=== PATIENT | male | born 1960 | race Caucasian/White ===

== ENCOUNTER 2021-12-20 15:15 | Outpatient (REF) | payer BC, SELFPAY ==
[2021-12-20 18:03] LABS: MANUAL DIFF FLAG NO
[2021-12-20 18:06] LABS: Appearance Urine Clear; Color Urine Dark Yellow; Glucose Urine UA Negative (Negative); Leukocyte Esterase Urine Trace (Negative); Nitrite Urine Negative (Negative); Specific Gravity - Urine >= 1.030 (1.005-1.025); UMIC TRIGGER UACC YES; Urine Blood Negative (Negative); Urine Ketones 40 mg/dL (Negative); Urine Protein 100 (2+) mg/dL (Neg-Trace)
[2021-12-20 18:16] LABS: Alanine Aminotransferase 35 U/L (0-40); Albumin Level 3.7 g/dL (3.5-5.0); Alkaline Phosphatase 75 U/L (39-117); Anion Gap 16 (12-20); Aspartate Amino Transferase 28 U/L (5-37); Bacteria Urine None Seen (None Seen); Bilirubin Total 1.3 mg/dL (0.0-1.0); Blood Urea Nitrogen 15 mg/dL (9-16); C Reactive Protein 23.25 mg/dL (< or = 0.50); Calcium 8.4 mg/dL (8.4-10.2); Carbon Dioxide 27 mmol/L (22-29); Chloride 94 mmol/L (96-108); Estimated Glomerular Filt Rate > 60; Glucose Random 116 mg/dL (60-115); Granular Casts Urine Present; Potassium 4.1 mmol/L (3.3-5.1); Sodium 133 mmol/L (135-145); Total Protein 6.3 g/dL (6.5-8.0); WBC Urine 0-5 /HPF (0-5)
[2021-12-20 18:26] LABS: Basophils Percent Auto 0.3 % (0-2); Eosinophils Absolute Auto 0.1 X10*3/uL (0.0-0.4); Eosinophils Percent Auto 0.6 % (0-4); Hematocrit 35.9 % (42.0-52.0); Hemoglobin 12.1 g/dl (14.0-18.0); Imm Gran Abs Auto 0.15 X10*3/uL (0.00-0.03); Imm Gran Pct Auto 1.1 % (0.0-0.4); Lymphocytes Absolute Auto 0.8 X10*3/uL (1.2-4.9); Lymphocytes Percent Auto 5.7 % (20-40); Mean Corpuscular HGB Conc 33.7 g/dl (31.0-36.0); Mean Corpuscular Hemoglobin 28.2 pg (27.0-33.0); Mean Corpuscular Volume 83.7 fL (80.0-98.0); Mean Platelet Volume 9.4 fL (9.4-12.4); Monocytes Absolute Auto 0.8 X10*3/uL (0.1-1.2); Monocytes Percent Auto 6.1 % (2-11); Neutrophils Absolute Auto 11.3 x10*3/uL (2.0-8.3); Neutrophils Percent Auto 86.2 % (45-73); Platelet Count 260 X10*3/uL (160-400); Red Blood Count 4.29 X10*6/uL (4.60-5.80); Red Cell Distribution Width 13.5 % (11.0-16.0); White Blood Count 13.1 X10*3/uL (4.8-10.8)
[2021-12-20 19:06] LABS: Erythrocyte Sedimentation Rate 89 MM/HR (0-15)
== END 2021-12-20 15:16 | disposition home or self-care (01) ==
LOC: HO.MANLDS 15:15
PROVIDERS: Visit Provider Physician Assistant
DX: R53.83 Other fatigue (principal)
CPT/HCPCS: 36415; 80053; 81001; 85025; 85652; 86140; 87086

== ENCOUNTER 2023-02-27 07:59 | Outpatient (REF) | payer BC, SELFPAY ==
[2023-02-27 13:48] LABS: MANUAL DIFF FLAG NO
[2023-02-27 13:59] LABS: Basophils Percent Auto 0.4 % (0-2); Eosinophils Absolute Auto 0.1 X10*3/uL (0.0-0.4); Eosinophils Percent Auto 2.1 % (0-4); Hematocrit 44.1 % (42.0-52.0); Hemoglobin 14.3 g/dl (14.0-18.0); Imm Gran Abs Auto 0.02 X10*3/uL (0.00-0.03); Imm Gran Pct Auto 0.4 % (0.0-0.4); Lymphocytes Absolute Auto 1.2 X10*3/uL (1.2-4.9); Lymphocytes Percent Auto 23.3 % (20-40); Mean Corpuscular HGB Conc 32.4 g/dl (31.0-36.0); Mean Corpuscular Hemoglobin 27.3 pg (27.0-33.0); Mean Corpuscular Volume 84.3 fL (80.0-98.0); Mean Platelet Volume 9.5 fL (9.4-12.4); Monocytes Absolute Auto 0.4 X10*3/uL (0.1-1.2); Monocytes Percent Auto 6.8 % (2-11); Neutrophils Absolute Auto 3.4 x10*3/uL (2.0-8.3); Platelet Count 244 X10*3/uL (160-400); Red Blood Count 5.23 X10*6/uL (4.60-5.80); White Blood Count 5.1 X10*3/uL (4.8-10.8)
[2023-02-27 14:35] LABS: Alanine Aminotransferase 47 U/L (0-40); Albumin Level 3.9 g/dL (3.5-5.0); Alkaline Phosphatase 72 U/L (39-117); Anion Gap 15 (12-20); Aspartate Amino Transferase 32 U/L (5-37); Bilirubin Total 0.5 mg/dL (0.0-1.0); Blood Urea Nitrogen 13 mg/dL (9-16); Calcium 9.1 mg/dL (8.4-10.2); Carbon Dioxide 25 mmol/L (22-29); Chloride 104 mmol/L (96-108); Cholesterol 178 mg/dL (<200); Estimated Glomerular Filt Rate > 60; Glucose Random 105 mg/dL (60-115); HDL Cholesterol 42 mg/dL (>40); Potassium 3.9 mmol/L (3.3-5.1); Sodium 140 mmol/L (135-145); Total Protein 6.7 g/dL (6.5-8.0)
[2023-02-27 15:16] LABS: LDL Cholesterol Calculated 95 mg/dL (<100); Triglycerides 206 mg/dL (<150)
== END 2023-02-27 08:00 | disposition home or self-care (01) ==
LOC: HO.MANLDS 07:59
PROVIDERS: Visit Provider Internal Medicine
DX: I10 Essential (primary) hypertension (principal); E78.1 Pure hyperglyceridemia
CPT/HCPCS: 36415; 80053; 80061; 85025

== ENCOUNTER 2023-08-20 07:42 | Outpatient (REF) | payer BC, SELFPAY ==
[2023-08-20 13:21] LABS: MANUAL DIFF FLAG NO
[2023-08-20 13:54] LABS: Basophils Percent Auto 0.7 % (0-2); Eosinophils Absolute Auto 0.1 X10*3/uL (0.0-0.4); Eosinophils Percent Auto 1.9 % (0-4); Hematocrit 42.3 % (42.0-52.0); Hemoglobin 14.2 g/dl (14.0-18.0); Imm Gran Abs Auto 0.01 X10*3/uL (0.00-0.03); Imm Gran Pct Auto 0.2 % (0.0-0.4); Lymphocytes Absolute Auto 1.2 X10*3/uL (1.2-4.9); Lymphocytes Percent Auto 21.6 % (20-40); Mean Corpuscular HGB Conc 33.6 g/dl (31.0-36.0); Mean Corpuscular Hemoglobin 27.8 pg (27.0-33.0); Mean Corpuscular Volume 82.9 fL (80.0-98.0); Mean Platelet Volume 9.4 fL (9.4-12.4); Monocytes Absolute Auto 0.4 X10*3/uL (0.1-1.2); Monocytes Percent Auto 6.5 % (2-11); Neutrophils Absolute Auto 3.7 x10*3/uL (2.0-8.3); Neutrophils Percent Auto 69.1 % (45-73); Platelet Count 286 X10*3/uL (160-400); Red Cell Distribution Width 13.2 % (11.0-16.0); White Blood Count 5.4 X10*3/uL (4.8-10.8)
[2023-08-20 13:58] LABS: Estimated Average Glucose 123 mg/dL; Hemoglobin A1C 151.7399 umol/L; Hemoglobin A1c % 5.9 % (<6.0)
[2023-08-20 14:04] LABS: Alanine Aminotransferase 39 U/L (0-40); Alkaline Phosphatase 69 U/L (39-117); Anion Gap 14 (12-20); Aspartate Amino Transferase 28 U/L (5-37); Bilirubin Total 0.4 mg/dL (0.0-1.0); Blood Urea Nitrogen 14 mg/dL (9-16); Calcium 9.2 mg/dL (8.4-10.2); Carbon Dioxide 25 mmol/L (22-29); Chloride 103 mmol/L (96-108); Estimated Glomerular Filt Rate > 60; Glucose Random 73 mg/dL (60-115); Potassium 4.3 mmol/L (3.3-5.1); Sodium 138 mmol/L (135-145)
[2023-08-20 14:19] LABS: Prostate Specific Antigen 0.32 ng/mL (<0.05-4.0)
== END 2023-08-20 07:43 | disposition home or self-care (01) ==
LOC: HO.MANLDS 07:42
PROVIDERS: Visit Provider Internal Medicine
DX: Z12.5 Encounter for screening for malignant neoplasm of prostate (principal); R73.01 Impaired fasting glucose
CPT/HCPCS: 36415; 80053; 83036; 84153; 85025

== ENCOUNTER 2024-05-30 09:00 | Outpatient (REF) | payer BC, SELFPAY ==
--- OUTSIDE RECORDS SUMMARY | 2024-05-30 09:29 | XMS_ITS | Data Portability ---
Author Organization [facility] Address [address] [place] [address] Assessment Encounter Date Assessment Date Assessment LastModified by Organization Details LastModified Time 07/18/2022 07/18/2022 [id number] [place] [id number] (SECOND STEWARD) [facility] MODERATE MUST MEET 2 OUT OF 3 ELEMENTS: PROBLEMS, DATA OR RISK ELEMENT 1: PROBLEMS ADDRESSED 1 OR MORE CHRONIC ILLNESS WITH EXACERBATION OR 2 OR MORE STABLE CHRONIC ILLNESSES OR 1 UNDIAGNOSED NEW PROBLEM OR 1 ACUTE ILLNESS W/SYMPTOMS OR 1 ACUTE COMPLICATED INJURY ELEMENT 2: DATA MUST MEET 1 OF 3 CATEGORIES CATEGORY 1: REVIEW OF PRIOR EXTERNAL NOTES, REVIEW OF RESULTS, ORDERING OF EACH TEST, ASSESSMENT REQUIRING INDEPENDENT HISTORIAN OR CATEGORY 2: INDEPENDENT INTERPRETATION OF TESTS BY ANOTHER PHYSICIAN OR SPECIALIST OR CATEGORY 3: DISCUSSION OF MGT OR TEST INTERPRETATION W/EXTERNAL PHYSICIAN OR SPECIALIST ELEMENT 3: RISK RISK OF COMPLICATIONS AND/OR MORBIDITY OR MORTALITY OF PATIENT MANAGEMENT PROVIDER MUST THOROUGHLY DOCUMENT EACH ELEMENT THAT IS COVERED Not available 07/18/2022 11:52:18 11/03/2022 11/03/2022 [id number] [place] [id number] (SECOND STEWARD) [facility] MODERATE MUST MEET 2 OUT OF 3 ELEMENTS: PROBLEMS, DATA OR RISK ELEMENT 1: PROBLEMS ADDRESSED 1 OR MORE CHRONIC ILLNESS WITH EXACERBATION OR 2 OR MORE STABLE CHRONIC ILLNESSES OR 1 UNDIAGNOSED NEW PROBLEM OR 1 ACUTE ILLNESS W/SYMPTOMS OR 1 ACUTE COMPLICATED INJURY ELEMENT 2: DATA MUST MEET 1 OF 3 CATEGORIES CATEGORY 1: REVIEW OF PRIOR EXTERNAL NOTES, REVIEW OF RESULTS, ORDERING OF EACH TEST, ASSESSMENT REQUIRING INDEPENDENT HISTORIAN OR CATEGORY 2: INDEPENDENT INTERPRETATION OF TESTS BY ANOTHER PHYSICIAN OR SPECIALIST OR CATEGORY 3: DISCUSSION OF MGT OR TEST INTERPRETATION W/EXTERNAL PHYSICIAN OR SPECIALIST ELEMENT 3: RISK RISK OF COMPLICATIONS AND/OR MORBIDITY OR MORTALITY OF PATIENT MANAGEMENT PROVIDER MUST THOROUGHLY DOCUMENT EACH ELEMENT THAT IS COVERED Not available 11/03/2022 14:54:19 02/28/2023 02/28/2023 [id number] [place] [id number] (SECOND STEWARD) [facility] MODERATE MUST MEET 2 OUT OF 3 ELEMENTS: PROBLEMS, DATA OR RISK ELEMENT 1: PROBLEMS ADDRESSED 1 OR MORE CHRONIC ILLNESS WITH EXACERBATION OR 2 OR MORE STABLE CHRONIC ILLNESSES OR 1 UNDIAGNOSED NEW PROBLEM OR 1 ACUTE ILLNESS W/SYMPTOMS OR 1 ACUTE COMPLICATED INJURY ELEMENT 2: DATA MUST MEET 1 OF 3 CATEGORIES CATEGORY 1: REVIEW OF PRIOR EXTERNAL NOTES, REVIEW OF RESULTS, ORDERING OF EACH TEST, ASSESSMENT REQUIRING INDEPENDENT HISTORIAN OR CATEGORY 2: INDEPENDENT INTERPRETATION OF TESTS BY ANOTHER PHYSICIAN OR SPECIALIST OR CATEGORY 3: DISCUSSION OF MGT OR TEST INTERPRETATION W/EXTERNAL PHYSICIAN OR SPECIALIST ELEMENT 3: RISK RISK OF COMPLICATIONS AND/OR MORBIDITY OR MORTALITY OF PATIENT MANAGEMENT PROVIDER MUST THOROUGHLY DOCUMENT EACH ELEMENT THAT IS COVERED Not available 02/28/2023 09:43:59 05/15/2023 05/15/2023 [id number] [place] [address] (SECOND STEWARD) [facility] MODERATE MUST MEET 2 OUT OF 3 ELEMENTS: PROBLEMS, DATA OR RISK ELEMENT 1: PROBLEMS ADDRESSED 1 OR MORE CHRONIC ILLNESS WITH EXACERBATION OR 2 OR MORE STABLE CHRONIC ILLNESSES OR 1 UNDIAGNOSED NEW PROBLEM OR 1 ACUTE ILLNESS W/SYMPTOMS OR 1 ACUTE COMPLICATED INJURY ELEMENT 2: DATA MUST MEET 1 OF 3 CATEGORIES CATEGORY 1: REVIEW OF PRIOR EXTERNAL NOTES, REVIEW OF RESULTS, ORDERING OF EACH TEST, ASSESSMENT REQUIRING INDEPENDENT HISTORIAN OR CATEGORY 2: INDEPENDENT INTERPRETATION OF TESTS BY ANOTHER PHYSICIAN OR SPECIALIST OR CATEGORY 3: DISCUSSION OF MGT OR TEST INTERPRETATION W/EXTERNAL PHYSICIAN OR SPECIALIST ELEMENT 3: RISK RISK OF COMPLICATIONS AND/OR MORBIDITY OR MORTALITY OF PATIENT MANAGEMENT PROVIDER MUST THOROUGHLY DOCUMENT EACH ELEMENT THAT IS COVERED Not available 05/15/2023 16:10:22 08/22/2023 08/22/2023 [id number] [place] [id number] (SECOND STEWARD) : [facility] LOW MUST MEET 2 OF 3 ELEMENTS: PROBLEMS, DATA OR RISK ELEMENT 1: PROBLEMS ADDRESSED (LOW): 2 OR MORE SELF-LIMITED OR MINOR PROBLEMS OR 1 STABLE CHRONIC ILLNESS OR 1 ACUTE UNCOMPLICATED ILLNESS OR INJURY ELEMENT 2: DATA TO BE REVISED AND ANALYZED (LOW) MUST MEET 1 OF 2 CATEGORIES: CATEGORY 1. REVIEW OF PRIOR EXTERNAL NOTES/RESULTS, ORDERING OF TEST(S) CATEGORY 2. ASSESSMENT REQUIRING INDEPENDENT HISTORIAN(S) INCLUDE WHO THE HISTORIAN IS AND RELATION TO PT AND WHY PT IS UNABLE TO GIVE COMPLETE HISTORY ELEMENT 3: RISK (LOW) RISK OF COMPLICATIONS AND/OR MORBIDITY OR MORTALITY OF PATIENT MANAGEMENT PROVIDER MUST THOROUGHLY DOCUMENT ALL OF THE ELEMENTS COVERED Not available 08/22/2023 16:11:31 Plan of Treatment Reminders Order Date Submit Date Provider Last Modified By Organization Details Last Modified Time Details Appointments FOLLOW UP 15 2024 03:15P M DR HAWKINS Not available Not available Not available Lab HbA1c (hemoglob in A1c), blood 2022 023 [facility], [address] [place] [address], [address], 08/21/2023 14:14:42 CMP, serum or plasma 2022 023 [facility], [address] [place] [address], [address], 02/28/2023 10:03:49 CBC w/ auto diff 2022 023 [facility], [address] [place] [address], [address], 02/28/2023 10:03:49 PSA, serum or plasma 2022 023 [facility], [address] [place] [address], [place], [address], 02/28/2023 10:03:49 Referral [email or web address] a consult - progressi ve edema bilat resistant to treatment 2023 024 bandar Garcia MD, [address] [place], [address], 05/16/2023 14:59:38 sleep medicine referral 2022 023 bandar Velasquez MD, [address] [facility], [address], [place], [address], 07/26/2022 08:21:20 Procedures None recorded. Surgeries None recorded. Imaging CT, heart, w/o contrast, w/ coronary calcium score 2022 023 [email or web address] [address] [facility], [address] [facility], [place], [address], 07/19/2022 08:13:10 Medication Orders atenolol 25 mg tablet 2022 023 [id number], [address] [place], [address], 02/28/2023 09:57:43 Patient TargetsNo targets recorded. Patient Instructions Encounter Date Encounter Id Patient Instructions Last Modified By Organization Details Last Modified Time 07/18/2022 [id number] prediabetes: car e instructions Not available 07/18/2022 12:00:14 leg and ankle edema: care instructions Not available 07/18/2022 12:00:14 sleep apnea: car e instructions Not available 07/18/2022 12:00:15 When You Want to Lose Weight: Care Instructions Not available 07/18/2022 12:02:21 high blood pressure: care instructions Not available 07/18/2022 12:00:15 learning about high blood pressure Not available 07/18/2022 12:00:14 11/03/2022 [id number] pulse oximetry* Not available 11/03/2022 14:54:18 high blood pressure: care instructions Not available 11/03/2022 14:54:17 learning about high blood pressure Not available 11/03/2022 14:54:18 05/15/2023 [id number] sleep apnea: car e instructions Not available 05/15/2023 16:19:50 Reason for Referral Sleep Medicine Referral for Obstructive sleep apnea syndrome Referring Physician: Vincent Hawkins, Internal [facility], Encounter Date: 07/18/2022 Lymphedema Consult for Lymph edema of bilateral lower limbs progressive edema bilat resistant to treatment Referring Physician: Vincent [facility], [facility], Encounter Date: 05/15/2023 Results Created Date Observation Date Name Description Value Unit Range Abnormal Flag Note LastModifiedBy Organization Detail LastModifiedTime 11/04/1911/0311/03/2022 pulse oxime try* Result 96 Not Available [facility] [address] [facility] [address], [place], [address], 10/30/2022 08:53:48 07/26/19 23 07/25/2022 CT, heart , w/o contr ast, w/ coron abigail calci um score No observ ation record ed. [address] [facility] [address] [place], [address], 11/03/2022 14:40:00 08/05/19 23 08/01/2022 CT, chest , w/o contr ast No observ ation record ed. [email or web address] [facility] [address] [place], [address], 11/03/2022 14:40:00 02/06/20 23 02/01/2023 sleep study , diagn ostic (PROC ) No observ ation record ed. [email or web address] [facility] [address] [place] [address], [address], 02/06/2023 16:04:42 02/21/20 23 02/13/2023 sleep study , diagn ostic (PROC ) No observ ation record ed. [address], [address], 02/21/2023 06:43:18 Result Notes None recorded. Problems Name Problem SNOMED Code Status Onset Date Resolution Date Notes Provider Name and Address Organization Details Recorded Time Edema of lower extremit y 530263848 Active 2019 Not Available [facility] 3 08:57:20 Depressi ve disorder 58830514 Active 2020 Not Available [facility] 3 08:57:20 Atrial paroxysm al tachycar carley 318550256 Active 2020 Not Available [facility] 3 08:57:20 Morbid obesity 212212691 Active 2020 Not Available [facility] 3 08:57:20 Lymphede ma of bilatera l lower limbs 84879065821 505317 Active 2021 Not Available [facility] 3 08:57:20 Osteoart hritis of right knee joint 88556906880 9100 Active 2021 Not Available [facility] 3 08:57:20 Herpes labialis 8119890 Active 2021 Not Available [facility] 3 08:57:20 Insect bite - wound 959740662 Active 2021 Not Available [facility] 3 08:57:20 Cellulit is of right lower limb 20599329134 717938 Active 2021 Not Available [facility] 3 08:57:20 Obstruct capri sleep apnea syndrome 53404228 Active 2021 Not Available [facility] 3 08:57:20 [facility] hyperten macie 96610539 Active 2017 Not Available [facility] 3 08:57:20 Hypertri glycerid emia 995589570 Active 2017 Not Available [facility] 3 08:57:20 Impaired fasting glycemia 788198859 Completed 201709/24/2019 Vincent Hawkins, DO [address] [place] [address], [place], [address], [facility] 3 16:07:06 Cellulit is 981474029 Active 2021 Not Available [facility] 3 08:57:20 Stasis dermatit is 31163448 Active 2021 Not Available [facility] 3 08:57:20 Lumbar radiculo odin 556926734 Active 2021 Not Available [facility] 3 08:57:20 Pneumoni a 099053979 Active 2021 Not Available [facility] 3 08:57:20 Left bundle branch block 41264579 Active 2021 Not Available [facility] 3 08:57:20 Bilatera l hip joint pain 31097873774 292550 Active 2021 Not Available [facility] 3 08:57:20 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 03455102088 9105 Active 2021 Not Available [facility] 3 08:57:20 Impaired fasting glycemia 325132014 Active 2022 Not Available [facility] 3 08:57:20 Mood disorder 69437783 Active 2022 Not Available [facility] 3 08:57:20 Mass of right lower lobe of lung 98585092507 4109 Active 2022 Not Available [facility] 3 08:57:20 Supraven tricular tachycar carley 0980878 Active 2023 Vincent Hawkins, DO [address] [place] [address], [address], [facility] 4 16:07:16 Lymphede ma of lower extremit y 662564004 Active 2023 Vincent Hawkins, DO [address] [place] [address], [address], [facility] 4 23:36:12 Problem Notes None recorded. Procedures Surgical History Date Name Laterality Status Provider Name and Address Organization Details Recorded Time 022 Corticosteroid Injection completed Vincent Hawkins DO [address] [place] [address], [address], [facility] 07/22/2021 12:25:20 015 Colonoscopy completed Carla Nguyen [facility] 05/21/2019 09:36:13 Imaging Results Imaging Date Name Status LastModified by Organiz ation Details LastModified Time 07/25/2022 CT, heart, w/o contrast, w/ coronary calcium score completed [facility] [address] [place], [address], 11/03/2022 14:40:00 08/01/2022 CT, chest, w/o contrast completed [facility] [address] [place], [address], 11/03/2022 14:40:00 02/01/2023 sleep study, diagnostic (PROC) completed jbda [address], [address], 02/06/2023 16:04:42 02/13/2023 sleep study, diagnostic (PROC) completed [address], [address], 02/21/2023 06:43:18 Procedure Notes None recorded. Medical Equipment None Reported. Allergies No known drug allergies Medications Name Sig Start Date Stop Date Status Note LastModified by Organization Details LastModified Time celecoxib 200 mg capsule PLEASE SEE ATTACHED FOR DETAILED DIRECTION S 02/28 completed Not Available Not Available Not Available furosemide 40 mg tablet TAKE 1 TABLET BY MOUTH EVERY DAY FOR 30 DAYS 09/26 completed Not Available Not Available Not Available prednisone 10 mg tablet Take 4 tablets every day by oral route for 10 days. 07/18 completed Not Available Not Available Not Available metoprolol succinate ER 50 mg tablet,exte nded release 24 hr TAKE 1 TABLET EVERY DAY BY ORAL ROUTE FOR 30 DAYS. 07/13 completed Not Available Not Available Not Available citalopram 10 mg tablet TAKE 1 TABLET BY MOUTH EVERY DAY 10/11 completed Not Available Not Available Not Available urea 40 % topical cream 05/20 completed Not Available Not Available Not Available atenolol 25 mg tablet TAKE 1 TABLET BY MOUTH EVERY DAY FOR 30 DAYS 2023 active Not Available Not Available Not Avai lable tramadol 50 mg tablet PLEASE SEE ATTACHED FOR DETAILED DIRECTION S 02/28 completed Not Available Not Available Not Available triamterene 37.5 mg-hydrochl orothiazide 25 mg capsule TAKE 1 CAPSULE BY MOUTH EVERY DAY 07/13 completed Not Available Not Available Not Available triamcinolo ne acetonide 0.1 % topical cream APPLY THIN LAYER TOPICALLY TO THE AFFECTED AREA TWICE DAILY 02/28 completed Not Available Not Available Not Available terbinafine HCl 250 mg tablet TAKE 1 TABLET BY MOUTH EVERY DAY 06/17 completed Not Available Not Available Not Available citalopram 20 mg tablet TAKE 1 TABLET BY MOUTH EVERY DAY 07/13 completed Not Available Not Available Not Available gentamicin 0.3 % eye drops 01/09 completed Not Available Not Available Not Available doxycycline monohydrate 100 mg capsule TAKE ONE CAPSULE BY MOUTH TWICE DAILY 07/18 completed Not Available Not Available Not Available cephalexin 500 mg capsule TAKE 1 CAPSULE BY MOUTH THREE TIMES DAILY FOR 5 DAYS 07/18 completed Not Available Not Available Not Available pantoprazol e 40 mg tablet,sherlyn yed release TAKE 1 TABLET BY MOUTH EVERY DAY PRE-OP TAKE THE MORNING OF SURGERY 02/28 completed Not Available Not Available Not Available erythromyci n 5 mg/gram (0.5 %) eye ointment 01/09 completed Not Available Not Available Not Available acyclovir 5 % topical ointment apply to affected area every 4 hours topically for 5 days 09/26 completed Not Available Not Available Not Available polymyxin B sulfate 10,000 unit-trimet hoprim 1 mg/mL eye drops PLACE 1 DROP INTO THE RIGHT EYE EVERY 6 HOURS FOR 7 DAYS. 05/15 completed Not Available Not Available Not Available hydrochloro thiazide 25 mg tablet TAKE 1 TABLET EVERY DAY BY ORAL ROUTE FOR 30 DAYS. active Not Available Not Available No t Available furosemide 20 mg tablet TAKE 1 TABLET BY MOUTH EVERY DAY 07/18 completed Not Available Not Available Not Available hydroxyzine HCl 10 mg tablet TAKE 1 TABLET BY MOUTH TWICE A DAY FOR 14 DAYS 07/18 completed Not Available Not Available Not Available doxycycline hyclate 100 mg tablet TAKE 1 TABLET BY MOUTH TWICE A DAY FOR 7 DAYS 07/18 completed Not Available Not Available Not Available diflorasone 0.05 % topical ointment 05/20 completed Not Available Not Available Not Available oxycodone 5 mg tablet DIRECTED 1 TABLET EVERY 6 HOURS NEEDED FOR PAIN. DO NOT DRIVE WHILE TAKING THIS MEDICATIO N 02/28 completed Not Available Not Available Not Available Zovirax 5 % topical cream 09/26 completed Not Available Not Available Not Available olmesartan 20 mg-hydrochl orothiazide 12.5 mg tablet TAKE 1 TABLET BY MOUTH EVERY DAY active Not Available Not Available No t Available Ozempic 0.25 mg or 0.5 mg (2 mg/1.5 mL) subcutaneou s pen injector INJECT 0.25 MG EVERY WEEK BY SUBCUTANE OUS ROUTE FOR 30 DAYS. 11/03 completed Not Available Not Available Not Available Fluzone Quad (PF) 60 mcg (15 mcg x 4)/0.5 mL IM syringe 01/17 completed Not Available Not Available Not Available Ozempic 0.25 mg or 0.5 mg (2 mg/3 mL) subcutaneou s pen injector Inject by subcutane ous route for 28 days. 11/03 completed Not Available Not Available Not Available Vitals Date Recorded Body height Heart rate Oxygen saturation Oxygen saturation in Arterial blood by Pulse oximetry Systolic blood pressure Diastolic blood pressure Provider Name and Address Organization Details Last Updated DateTime 3 177.8 cm 83 /min 95 % 95 % 120 mm[Hg] 80 mm[Hg] [facility] 3 11:17:05 Date Recorded Body height Body mass index (BMI) Body weight Oxygen saturation Oxygen saturation in Arterial blood by Pulse oximetry Heart rate Systolic blood pressure Diastolic blood pressure Provider Name and Address Organization Details Last Updated DateTime 3 177.8 cm 44 kg/m2 134775. 86 g 96 % 96 % 81 /min 138 mm[Hg] 80 mm[Hg] [facility] 3 14:18:06 Date Recorded Body height Body mass index (BMI) Body weight Heart rate Oxygen saturation Oxygen saturation in Arterial blood by Pulse oximetry Systolic blood pressure Diastolic blood pressure Provider Name and Address Organization Details Last Updated DateTime 3 177.8 cm 46.8 kg/m2 879348. 11 g 87 /min 95 % 95 % 154 mm[Hg] 88 mm[Hg] [facility] 3 09:25:01 Date Recorded Body height Body mass index (BMI) Body weight Heart rate Oxygen saturation Oxygen saturation in Arterial blood by Pulse oximetry Systolic blood pressure Diastolic blood pressure Provider Name and Address Organization Details Last Updated DateTime 4 177.8 cm 47.4 kg/m2 251449. 64 g 75 /min 95 % 95 % 154 mm[Hg] 72 mm[Hg] Vincent Hawkins, DO [address] [place], [address] 4 15:45:27 Date Recorded Body height Body mass index (BMI) Body weight Heart rate Respiratory rate Oxygen saturation Oxygen saturation in Arterial blood by Pulse oximetry Systolic blood pressure Diastolic blood pressure Provider Name and Address Organization Details Last Updated DateTime 4 177.8 cm 48.1 kg/m2 801999. 44 g 58 /min 16 /min 98 % 98 % 140 mm[Hg] 82 mm[Hg] Adilson Cronin [facility] 4 15:57:01 Social History Question Answer Notes LastModified by Organizat ion Details LastModified Time Tobacco Smoking Status Never Smoker Not Available [facility] 01/20/2020 03:36:24 What Was The Date Of Your Most Recent Tobacco Screening? 08/22/2023 [email or web address] Information not available 08/22/2023 Do You Or Have You Ever Used Any Other Forms Of Tobacco Or Nicotine? No [email or web address] Information not available 07/18/2022 Sex: Unknown Functional Status None recorded. Mental Status None recorded. Family History Nothing Reported. Medical History No medical history recorded. Immunizations Vaccine Type Date Status Note Provider Nam e and Address Organization Details Recorded Time Influenza, split virus, quadrivalent, preservative 1 completed Not Available [facility] 05/06/2023 11:48:09 COVID-19, mRNA, LNP-S, PF, 100 mcg/0.5mL dose or 50 mcg/0.25mL dose 2 completed Not Available [facility] 05/06/2023 11:48:09 influenza, unspecified formulation 3 completed Not Available [facility] 05/06/2023 11:48:09 COVID-19 mRNA, bivalent, original/Omicron BA.1, Non-US Vaccine (Spikevax Bivalent), Moderna 3 completed Not Available [facility] 05/06/2023 11:48:09 zoster, unspecified formulation 3 completed Not Available [facility] 05/06/2023 11:48:09 zoster, unspecified formulation 3 completed Not Available [facility] 05/06/2023 11:48:09 Influenza, split virus, quadrivalent, preservative 9 completed Not Available [facility] 05/06/2023 11:48:09 Influenza, split virus, quadrivalent, preservative 9 completed Not Available [facility] 05/06/2023 11:48:09 COVID-19, mRNA, LNP-S, PF, 100 mcg/0.5mL dose or 50 mcg/0.25mL dose 1 completed Not Available [facility] 05/06/2023 11:48:09 COVID-19, mRNA, LNP-S, PF, 100 mcg/0.5mL dose or 50 mcg/0.25mL dose 1 completed Not Available [facility] 05/06/2023 11:48:09 Past Encounters Encounter ID Performer Location Encounter Start Date Encounter Closed Date Diagnosis/Indication Diagnosis SNOMED-CT Code Diagnosis ICD10 Code Diagnosis Note [id number] [facility] [address] [facility], [place] [address] 01/09/2018 11:02:59 01/09/2018 16:18:03 Essential hypertension 71745899 I10 will monitor at work and let me know if running borderline Impaired f asting glycemia 116373991 R73.01 glucose levels are normal Hypertriglyceridemia 302 184016 E78.1 willneed torechk in next lab draw Paronychia of toe 587399 002 L03.039 will treat with abx Depressive disorder 3548 9007 F32.9 long discussion Irritable bowel syndrome 95459532 K58.[id number] [facility] [address] [facility], [place] [address] 01/29/2018 15:52:52 01/30/2018 09:11:20 Essential hypertension 29482905 I10 will monitor at work and let me know if running borderline Impaired f asting glycemia 259944425 R73.01 glucose levels are normal Hepatitis C screening 41 6116116 Z11.59 Onychia of toe 850992726 L03.039 lamisil trial Depressive disorder 3548 9007 F32.9 long discussion will cont the citalopram 10mg pt will call if no issues [id number] [facility] [address] [facility] [address],[place] [address] 04/12/2018 16:15:21 04/15/2018 11:09:29 Impaired fasting glycemia 050560601 R73.01 glucose levels are normal Essential hypertension 55489492 I10 will monitor at work and let me know if running borderline Hypertensive disorder 38 410087 I10 [place]ct [id number] [facility] [address] [facility] [address],[place] [address] 09/16/2018 15:57:49 09/16/2018 16:56:35 Impaired fasting glycemia 597235764 R73.01 glucose levels are normal Essential hypertension 86815979 I10 will monitor at work and let me know if running borderline Tick bite 86524419 W57.X XXA Onychomyco sis of toenails 230954999 B35.1 Cough 32412439 R05 [id number] [facility] [address] [facility] [address],[place] [address] 01/17/2019 16:09:22 01/17/2019 16:35:19 Essential hypertension 36398222 I10 will monitor at work and let me know if running borderline Hypertriglyceridemia 302 012142 E78.1 will need to rechk in next lab draw Impaired f asting glycemia 344930759 R73.01 glucose levels are normal with the a1c is 5,4 Onychomyco sis of toenails 487629066 B35.[id number] [facility] [address] [facility] [address],[place] [address] 05/21/2019 15:51:41 05/21/2019 16:23:11 Hypertriglyceridemia 933796448 E78.1 will need to rechk in next lab draw Impaired f asting glycemia 992986758 R73.01 glucose levels are normal with the a1c is 5,8 was 5.4 warned that it is borderline Essential hypertension 49584425 I10 bp elevated has not lost any weight will need to increase the dose he will take 2 tabs of the benicar hct as he just got some [id number] Vincent Hawkins DO [facility] [address] [facility],[place] [address] [facility] [place] [address] 06/18/2019 09:36:05 06/18/2019 10:43:11 Essential hypertension 09496301 I10 2 tabs is working well we will see if its assoc with the benicar by stopping the second pill for 1 week and calling me with update Hypertriglyceridemia 302 474217 E78.1 will need to rechk in next lab draw Impaired f asting glycemia 758275242 R73.01 glucose levels are normal with the a1c is 5,8 was 5.4 warned that it is borderline Onychomyco sis of toenails 182918243 B35.1 will now wait and see [place] [id number] [facility] [address] [facility], ite [place] [address] 07/30/2019 15:49:43 07/30/2019 16:42:15 Essential hypertension 98347034 I10 dyazide is not getting the bp down so we will need to go back on benicar he has plenty at home we will cont tomonitor Edema of l ower extremity 009150695 R60.0 will be back on benicar hct and we will see if his edema improves as it had in the past Hypertriglyceridemia 302 518857 E78.1 will need to rechk in next lab draw Impaired f asting glycemia 380185528 R73.01 glucose levels are normal with the a1c is 5,8 was 5.4 warned that it is borderline [id number] [facility] [address] [facility] [place] ite [place] [address] 09/24/2019 15:35:28 09/24/2019 16:21:26 Essential hypertension 14323976 I10 benicar hct working very well Impaired f asting glycemia 725718141 R73.01 glucose levels are normal with the a1c is 5,4 was 5,8 was 5.4 Hypertriglyceridemia 302 828966 E78.1 will need to rechk in next lab draw [id number] Vincent Hawkins [facility] [address] [facility] [address],[place] [address] 03/22/2020 11:57:28 03/22/2020 13:38:41 Active or passive immunization 356012710 Z23 reviewed Adult heal th examination 879289549 Z00.00 doing well has been on a diet that is going to work quite well will cont and rechk in [address] [place] bp [id number] 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 [address] [facility] [address],[place] [address] 10/11/2020 15:59:02 10/11/2020 16:47:07 Depressive disorder 29396557 F32.9 long discussion will increase the citalopram 20mg pt will call if no issues Atrial par oxysmal tachycardia 972595609 I47.1 here and is having no issue physically Plantar wa rt of right foot 3063602051 6229829 B07.[address] [facility] [address] [facility],[place] [address] 11/03/2020 15:41:08 11/03/2020 16:29:45 Atrial paroxysmal tachycardia 521326816 I47.1 here and is having no issue physically and is actually feeling better Essential hypertension 98019084 I10 doing good with metoprolol on board stable bp Mood disorder 80051665 F 39 cont the citalopram [address] [facility] [address] [facility],[place] ite [facility] [address] 02/14/2021 10:56:48 02/14/2021 13:53:42 Edema of lower extremity 284012589 R60.0 has noted increased edema as was prior even though he is back on benicar hct we will increase the hct portion Essential hypertension 05720286 I10 doing good with metoprolol on board stable bp Morbid obesity 641617452 E66.01 he will call the insurance co and he will get back to us re the insurance cov for wgt loss program Hyperglycemia 08646206 R 73.9 warned of potential for DM and urgent need to lose wgt Liver enzy mes level above reference range 637264293 R74.01 no doubt prob due to fatty liver given his size will need to have this rechkd and then ? if [place] etc [address] [facility] [address] [facility] [address],[place] [address] 06/14/2021 15:48:10 06/14/2021 16:58:55 Atrial paroxysmal tachycardia 064081000 I47.1 here and is having no issue physically and is actually feeling better Hypertriglyceridemia 302 335786 E78.1 will need to rechk in next lab draw Essential hypertension 94702784 I10 doing good with metoprolol on board stable bp Morbid obesity 161027048 E66.01 he will call the insurance co and he will get back to us re the insurance cov for wgt loss program Mood disorder 45514892 F 39 cont the citalopram Edema of l ower extremity 629713794 R60.0 has noted increased edema as was prior even though he is back on benicar hct we will increase the hct portion 25001 Vincent Hawkins DO [facility] [address] [facility] [address],[place] [address] 07/13/2021 15:34:17 07/13/2021 17:04:20 Essential hypertension 30244021 I10 doing good with metoprolol on board stable bp Edema of l ower extremity 189476508 R60.0 has noted increased edema as was prior even though he is back on benicar hct we will increase the hct portion Atrial par oxysmal tachycardia 247102235 I47.1 here and is having no issue physically and is actually feeling better Lymphedema of bilateral lower limbs 0825887640 6800683 I89.0 96419 Vincent Hawkins DO [facility] [address] [facility] [address],[place] [address] 07/22/2021 11:49:46 07/22/2021 12:31:36 Osteoarthritis of right knee joint 7351147455 70112 M17.11 jordyn [place] toerated inj 83112 BENITO SILVA [facility] [address] [facility],[place] [address] 09/26/2021 14:19:27 09/27/2021 08:34:08 Insect bite - wound 705906418 T14.8XXA tick bite vs insect bitewarm and swollensig nificant fluid in the LEs, saw vascular thinks its due to diet, weight, and job Cellulitis of right lower limb 7067147409 6921547 L03.115 will start on doxy Edema of l ower extremity 408564459 R60.0 will fu with ESTEBAN, will send him the plan establishe d by vascular [address]108 BENITO SILVA [facility] [address] [facility] [address],[place] [address] 11/22/2021 10:35:26 11/22/2021 11:51:23 Lymphedema of bilateral lower limbs 2761239042 7664526 I89.0 will start on short course of lasix Cellulitis 664712147 L03 .116 fu with patient next week Stasis dermatitis 699185 05 I87.2 will start on combo therapy for possible dermatitis vs cellulitis and also treat the swelling related 09416 BENITO SILVA [facility] [address] [facility], [place] [address] 12/27/2021 09:29:11 12/27/2021 16:37:35 Pneumonia 755778435 J18.9 will f/u with CXR for recheck of the pna Left bundl e branch block 29598666 I44.7 will fu with an echo to determine if this is a normal variant or related to something else 34270 Vincent Hawkins DO [facility] [address] [facility], [place] [address] 04/17/2022 08:12:25 04/19/2022 10:41:51 Essential hypertension 98864323 I10 doing good with metoprolol on board stable bp Edema of l ower extremity 663937132 R60.0 has noted increased edema as was prior even though he is back on benicar hct we will increase the hct portion Impaired f asting glycemia 761470696 R73.01 glucose levels are normal with the a1c is 5.8 5,4 was 5,8 was 5.4 Morbid obesity 879084728 E66.01 he will call the insurance co and he will get back to us re the insurance cov for wgt loss program Mood disorder 78832710 F 39 cont the citalopram Atrial par oxysmal tachycardia 073094909 I47.1 here and is having no issue physically and is actually feeling better [id number] Vincent Hawkins DO [facility] [address] [facility],[place] [facility] [place] [address] 07/18/2022 11:06:20 07/18/2022 13:12:35 Impaired fasting glycemia 020119493 R73.01 glucose levels are normal with the a1c is now up to 6.0 meaning he is now a true pre diabetic and we had a long talk about his weight and the inherent dangers he had been 5.8 5,4 was 5,8 was 5.4 Essential hypertension 04741224 I10 doing good with metoprolol on board stable bp Obstructiv e sleep apnea syndrome 65696659 G47.33 he will need new test as he is not using a cpap Atrial par oxysmal tachycardia 093935662 I47.1 here and is having no issue physically and is actually feeling better Edema of l ower extremity 477475293 R60.0 has noted increased edema as was prior even though he is back on benicar hct we will increase the hct portion Morbid obesity 596155074 E66.01 didnt do wgt loss program not very motivated activity level is very limited by his hip arthritis, and hence ability to lose wgt is impaired as well [id number] Vincent Hawkins, [facility] [address] [facility],[place] [address] 11/03/2022 14:09:57 11/03/2022 15:01:23 Edema of lower extremity 334109548 R60.0 has noted increased edema as was prior even though he is back on benicar hct we will increase the hct portion Atrial par oxysmal tachycardia 870324933 I47.1 here and is having no issue physically and is actually feeling better Essential hypertension 96941502 I10 doing good with metoprolol on board stable bp Hypertriglyceridemia 302 588732 E78.1 will need to rechk in next lab draw [id number] Vincent Hawkins [facility] [address] [facility],[place] [address] 02/28/2023 09:20:52 02/28/2023 10:05:24 Essential hypertension 24767706 I10 cold feet prob side effect olmesart we will change to atenolol 25mg Hypertriglyceridemia 302 971925 E78.1 LDL is only 95 HDL is 45 Morbid obesity 704669674 E66.01 didnt do wgt loss program not very motivated activity level is very limited by his hip arthritis, and hence ability to lose wgt is impaired as well Atrial par oxysmal tachycardia 027521250 I47.19 he is in nsr no palpitatio ns Impaired f asting glycemia 078536507 R73.01 glucose levels are normal with the a1c is now 6.0 meaning he is now a true pre diabetic and we had a long talk about his weight and the inherent dangers he had been 5.8 5,4 was 5,8 was 5.4 [id number] Vincent Hawkins, [facility] [address] [facility],[place] [address] 05/15/2023 15:30:36 05/15/2023 16:27:10 Supraventricular tachycardia 9285097 I47.10 Essential hypertension 22820012 I10 cold feet prob side effect olmesart we will change to atenolol 25mg Hypertriglyceridemia 302 056200 E78.1 LDL is only 95 HDL is 45 Lymphedema of bilateral lower limbs 3436696249 9975703 I89.0 given the persistanc e we will refer him to a vascular specialist Obstructiv e sleep apnea syndrome 65047045 G47.33 he will need new test as he is not using a cpap [id number] Vincent Hawkins, [facility] [address] [facility],[place] [address] 08/22/2023 15:49:55 08/22/2023 16:23:44 Morbid obesity 571195044 E66.01 didnt do wgt loss program not very motivated activity level is very limited by his hip arthritis, and hence ability to lose wgt is impaired as well Essential hypertension 51158154 I10 cold feet prob side effect olmesart we will change to atenolol 25mg Lymphedema of bilateral lower limbs 2821802895 9913297 I89.0 given the persistanc e we will get him leg compressio n sleeves auto inflate Depression screening 171 069526 Z13.31 neg Edema of l ower extremity 814086817 R60.0 has noted increased edema as was prior even though he is back on benicar hct we will increase the hct portion Atrial par oxysmal tachycardia 192522142 I47.19 he is in nsr no palpitatio ns Health Concerns Section Related Observation LastModified by Organization Detai ls LastModified Time None Recorded Concern Status LastModified by Organization Details LastModified Time None Recorded Advance Directives Directive None Recorded Payers Encounter Date Sequence Insurance Name Policy Number Policy Nye Covered Member ID Nye Member ID Guarantor Name 07/18/2022 1 [place] [id number] John Benitezron [id number] John Safron 11/03/2022 1 [place] [id number] John Benitezron [id number] John Safron 02/28/2023 1 [place] [id number] John Beatty Safron [id number] John Safron 05/15/2023 1 [place] [id number] John Beatty Safron [id number] John Safron 08/22/2023 1 [place] [id number] John Benitezron [id number] John Benitezron Notes Date Note Type Note Provider Name and Address Organization Details Recorded Time 3 text/htm l here for rechk aching aiden in the left hiprelates that this is preventing him from exercisinghis left hip is with severe deg ds bone on bonehas not lost any wgtozempic not helpful but then again he needs;to eat better and this is not apparentreviewed lab in detailnote he had a few tick bites and this lab was negativehe cont to gain wgt not able to lose per pthe has noticed now the onset of frequent urination also has had increased thirst and this is coupled with the morbid obesity and strong family hx of diabetes upon questioning;no cp no sob does get some exertional dyspnea Vincent Hawkins, [address] [place], [address], [facility] 10/01/2022 13:34:35 3 text/htm l here for rechk and relates his wgt is coming downgoing for his hip replacement in novemberhe has lost over 20lbswill have the left one first replaced Vincent Hawkins DO [address] [place], [address], [facility] 11/03/2022 14:56:10 3 text/htm l Care Management - HypertensionReported bypatient.Self Care:not under emotional stress Severity:symptoms are improving; does not interfere with daily activities Associated Symptoms:no dizziness; no lightheadedness; no chest pain; no shortness of breath; no palpitations; no edema; no calf muscle cramps; no blurred vision; no confusion; no headaches; no fatigue here for rechk states did great with hip surgeryno pain did great walking that dayfinished PTunfortunately has gained wgt again Vincent Hawkins DO [address] [place] [address], [address], [facility] 02/28/2023 09:58:11 4 text/htm l Care Management - HypertensionReported bypatient.Self Care:not under emotional stress Severity:symptoms are improving; does not interfere with daily activities Associated Symptoms:no dizziness; no lightheadedness; no chest pain; no shortness of breath; no palpitations; no edema; no calf muscle cramps; no blurred vision; no confusion; no headaches; no fatigue here for rechk and is doing okhip is goodcold feet is still there along with leg edema Vincent Hawkins, [address] [place], [address], [facility] 05/15/2023 16:20:05 4 text/htm l unfortunately he did not have a fruitful visitlong discussion re need for compression therapy to treat his lymphedema Vincent Hawkins DO [address] [place], [address], [facility] 08/22/2023 16:13:45
[2024-05-30 13:45] LABS: MANUAL DIFF FLAG NO
[2024-05-30 13:57] LABS: Basophils Percent Auto 0.5 % (0-2); Eosinophils Absolute Auto 0.1 X10*3/uL (0.0-0.4); Eosinophils Percent Auto 1.5 % (0-4); Hematocrit 45.1 % (42.0-52.0); Hemoglobin 14.7 g/dl (14.0-18.0); Imm Gran Abs Auto 0.02 X10*3/uL (0.00-0.03); Imm Gran Pct Auto 0.3 % (0.0-0.4); Lymphocytes Absolute Auto 1.4 X10*3/uL (1.2-4.9); Lymphocytes Percent Auto 22.4 % (20-40); Mean Corpuscular HGB Conc 32.6 g/dl (31.0-36.0); Mean Corpuscular Hemoglobin 27.1 pg (27.0-33.0); Mean Corpuscular Volume 83.2 fL (80.0-98.0); Mean Platelet Volume 9.9 fL (9.4-12.4); Monocytes Absolute Auto 0.4 X10*3/uL (0.1-1.2); Monocytes Percent Auto 6.8 % (2-11); Neutrophils Absolute Auto 4.2 x10*3/uL (2.0-8.3); Neutrophils Percent Auto 68.5 % (45-73); Platelet Count 227 X10*3/uL (160-400); Red Blood Count 5.42 X10*6/uL (4.60-5.80); Red Cell Distribution Width 13.7 % (11.0-16.0); White Blood Count 6.1 X10*3/uL (4.8-10.8)
[2024-05-30 14:22] LABS: Alanine Aminotransferase 38 U/L (0-40); Albumin Level 3.9 g/dL (3.5-5.0); Alkaline Phosphatase 75 U/L (39-117); Anion Gap 11 (12-20); Aspartate Amino Transferase 30 U/L (5-37); Bilirubin Total 0.7 mg/dL (0.0-1.0); Blood Urea Nitrogen 11 mg/dL (9-16); Calcium 8.8 mg/dL (8.4-10.2); Carbon Dioxide 27 mmol/L (22-29); Chloride 104 mmol/L (96-108); Cholesterol 171 mg/dL (<200); Estimated Glomerular Filt Rate > 60; Glucose Random 99 mg/dL (60-115); HDL Cholesterol 35 mg/dL (>40); LDL Cholesterol Calculated 110 mg/dL (<100); Potassium 4.2 mmol/L (3.3-5.1); Sodium 138 mmol/L (135-145); Total Protein 6.8 g/dL (6.5-8.0); Triglycerides 130 mg/dL (<150)
[2024-05-30 14:53] LABS: Prostate Specific Antigen 0.49 ng/mL (<0.05-4.0)
== END 2024-05-30 09:01 | disposition home or self-care (01) ==
LOC: HO.MANLDS 09:00
PROVIDERS: Visit Provider Internal Medicine
DX: I10 Essential (primary) hypertension (principal); Z12.5 Encounter for screening for malignant neoplasm of prostate
CPT/HCPCS: 36415; 80053; 80061; 84153; 85025

== ENCOUNTER 2025-03-06 09:48 | Outpatient (REF) | payer BC, SELFPAY ==
--- OUTSIDE RECORDS SUMMARY | 2025-03-06 10:45 | XMS_ITS | Encounter Summary ---
Author Organization [facility] Address [address] [place] [address] Phone Care Team Providers Care Pesticide Applicator Name Role Phone Vincent Trujillo DO Primary Care Provider [phone] Vincent Trujillo DO Unavailable Sangeetha Dillon TEACHING DIETITIAN Unavailable Jared Hackett MD Unavailable [phone] Hien Keller NP Unavailable [phone] Vincent Trujillo DO Unavailable Encounter Details Date Type Department Care Team (Late st Contact Info) Description 09/08/2020 Procedure Pass Rivera Heidi Non-Invasic Cardiology [address], [place] [id number] Social History Tobacco Use Types Packs/Day Years Used Date Smoking Tobacco: Never Smokeless Tobacco: Former Alcohol Use Standard Drinks/Week Comments Yes 0 (1 standard drink = 0.6 oz pur e alcohol) socially Sex and Gender Information Value Date Recorded Sex Assigned at Male 08/13/2020 2:27 PM EDT Legal Sex Male 9:45 PM EDT Gender Identity Male 08/13/2020 2:27 PM EDT Sexual Orientation Not on file documented as of this encounter Plan of Treatment Not on file documented as of this encounter Visit Diagnoses Not on filedocumented in this encounter Additional Health Concerns Infection Onset Date Last Indicated Resolved Time CoV-Risk 12/21/2021 12/21/2021 01/01/2022 1:22 AM EDT documented as of this encounter Care Teams Pesticide Applicator Relationship Specialty Start Date End Date Vincent Trujillo PCP - General 01/01/17 CassandraVincentDO Historical LMR Provider 01/01/17 Sangeetha Dillon, TEACHING DIETITIAN [address] [place] [address] [email or web address] Historical LMR Provider 01/01/17 2 Jared Hackett MD [address] [place] [address] [email or web address] Historical LMR Provider 01/01/17 03/26/21 Hien Keller NP [address] [place] [address] Historical LMR Provider 01/01/17 2 Vincent Trujillo DO [address] [place] [address] Insurance Assigned Provider 06/23/23 documented as of this encounter Additional Source Comments The information contained in this document represents components of the legal health record. It is not the complete legal health record.[facility]
--- OUTSIDE RECORDS SUMMARY | 2025-03-06 10:45 | XMS_ITS | Encounter Summary ---
Author Organization [facility] Address [address] [place] [address] Phone Care Team Providers Care Clinical Psychiatrist Name Role Phone Vincent Trujillo DO Primary Care Provider [phone] Vicnent Trujillo DO Unavailable Sangeetha Dillon FURNITURE DIPPER Unavailable Jared Hackett MD Unavailable [phone] Hien Keller NP Unavailable Vincent Trujillo DO Unavailable Encounter Details Date Type Department Care Team (Late st Contact Info) Description 01/07/2018 Transcribe Orders [address] [id number] Vincent Trujillo DO [address] [facility] [place] [address] [place] [address] Essential hypertension, malignant (Primary Dx); Pure hypercholesterolemia Social History Tobacco Use Types Packs/Day Years Used Date Smoking Tobacco: Never Assessed Sex and Gender Information Value Date Recorded Sex Assigned at Male 08/13/2020 2:27 PM EDT Legal Sex Male 9:45 PM EDT Gender Identity Male 08/13/2020 2:27 PM EDT Sexual Orientation Not on file documented as of this encounter Plan of Treatment Not on file documented as of this encounter Results * Hemoglobin A1c (01/07/2018 8:00 AM EDT) HEMOGLOBIN A1C 5.5 4.3 - 5.8 % [facility] Blood 01/07/2018 8:00 AM EDT 01/07/2018 12:20 PM EDT us Vincent A Bigda DO LAB BLOOD BKR ORDERABLES Final R esult [address] [address] * CBC (01/07/2018 8:00 AM EDT) WBC 5.07 3.40 - 11.20 K/uL [facility] RBC 5.26 4.50 - 5.50 M/uL [facility] HGB 15.1 13.0 - 17.0 g/dL [facility] HCT 43.6 40.0 - 51.0 % [facility] PLT 220 130 - 400 K/uL [facility] MCV 82.9 79.0 - 98.0 fL [facility] MCH 28.7 27.0 - 34.8 pg [facility] MCHC 34.6 31.5 - 36.0 g/dL [facility] RDW 12.2 10.8 - 14.6 % [facility] MPV 9.9 9.4 - 12.4 fl [facility] NRBC 0.00 /100 WBCs [facility] ABSOLUTE NRBC 0.00 K/uL [facility] Blood 01/07/2018 8:00 AM EDT 01/07/2018 12:20 PM EDT us Vincent A Bigda DO LAB BLOOD BKR ORDERABLES Final R esult [address] [address] * (ABNORMAL) Comprehensive metabolic panel (01/07/2018 8:00 AM EDT) SODIUM 143 133 - 146 mmol/L [facility] POTASSIUM 4.2 3.3 - 5.1 mmol/L [facility] CHLORIDE 103 96 - 108 mmol/L [facility] CO2 28 21 - 35 mmol/L [facility] BUN 14 6 - 19 mg/dL [facility] CREATININE 1.10 0.5 - 1.5 mg/dL [facility] GLUCOSE 97 70 - 99 mg/dL [facility] ALBUMIN 4.1 3.9 - 4.8 g/dL [facility] TOTAL PROTEIN 6.6 6.5 - 8.0 g/dL [facility] CALCIUM 9.0 8.4 - 10.3 mg/dL [facility] ALKALINE PHOSPHATASE 50 39 - 117 U/L [facility] TOTAL BILIRUBIN 0.7 0.0 - 1.2 mg/dL [facility] AST 30 0 - 37 U/L [facility] ALT 57(H) 0 - 40 U/L [facility] GLOBULIN 2.5 1 - 4.8 g/dL [facility] EGFR 75 >59 mL/min/1.7 3m2 [facility] Comment:If patient is black, multiply result by 1.159. Estimated glomerular filtration rate calculated using the CKD-EPI equation. ANION GAP 16 10 - 20 mmol/L [facility] Blood 01/07/2018 8:00 AM EDT 01/07/2018 12:20 PM EDT us Vincent Trujillo DO LAB BLOOD BKR ORDERABLES Final R esult [address] [address] documented in this encounter Visit Diagnoses Diagnosis Essential hypertension, malignant- Primary Pure hypercholesterolemia documented in this encounter Additional Health Concerns Infection Onset Date Last Indicated Resolved Time CoV-Risk 12/21/2021 12/21/2021 01/01/2022 1:22 AM EDT documented as of this encounter Care Teams Clinical Psychiatrist Relationship Specialty Start Date End Date Vincent Trujillo DO PCP - General 01/01/17 Vincent Trujillo DO Historical LMR Provider 01/01/17 Sangeetha Dillon NP [address] [place] [address] [email or web address] Historical LMR Provider 01/01/17 2 Jared Hackett MD [address] [place] [address] [email or web address] Historical LMR Provider 01/01/17 03/26/21 Hien Keller NP [address] [place] [address] Historical LMR Provider 01/01/17 2 Vincent Trujillo DO [address] [place] [address] [email or web address] Insurance Assigned Provider 06/23/23 documented as of this encounter Additional Source Comments The information contained in this document represents components of the legal health record. It is not the complete legal health record.[facility]
--- OUTSIDE RECORDS SUMMARY | 2025-03-06 10:45 | XMS_ITS | Clinical Summary ---
Author Organization [facility] Address [address] [place] [address] Phone Care Team Providers Care Warehouse Material Handler Name Role Phone Cassandra Demetria Beatty DO Primary Care Provider [phone] Bigtk, Demetria Beatty DO Unavailable Bigda, Demetria Beatty DO Unavailable Allergies No known active allergies Medications olmesartan-hydro CHLOROthiazide (BENICAR HCT) 20-12.5 mg per tablet Active atenolol (TENORMIN) 25 MG tablet Take 25 mg by mouth daily. Active Active Problems Problem Noted Date Diagnosed Date Left bundle branch block (LBBB) 10/02/2024 Sprain of ligament of tarsometatarsal joint of r ight foot 06/13/2024 Family History Medical History Relation Comments Hypertension Father 2 CV disease Mother 2 Relation Status Comments Father 1 Alive Father 2 Mother 1 Mother 2 Social History Tobacco Use Types Packs/Day Years Used Date Smoking Tobacco: Never Smokeless Tobacco: Former Alcohol Use Standard Drinks/Week Comments Yes 0 (1 standard drink = 0.6 oz pur e alcohol) socially Education Answer Date Recorded Are you interested in more education? Not on keeley e 07/14/2022 Are you concerned about learning? Not on file 07/14/2022 No 07/14/2022 No 07/14/2022 Digital Access Answer Date Recorded No 08/12/2022 No 08/12/2022 Reliable internet access at home? Not on file 08/12/2022 Device with a working camera? Not on file Intimate Partner Violence Answer Date R ecorded Denied Basic Needs Not on file 09/29/2024 In the past 12 months have y ou been in a relationship with a person who hurts, threatens, or tries to control you? No 09/29/2024 Worried food would run out Not on file 09/29 In the past 12 months have y ou been in a relationship with a person who hurts, threatens, or tries to control you? No 09/29/2024 Sex and Gender Information Value Date Recorded Sex Assigned at Male 08/13/2020 2:27 PM EDT Legal Sex Male 9:45 PM EDT Gender Identity Male 08/13/2020 2:27 PM EDT Sexual Orientation Not on file Last Filed Vital Signs Vital Sign Reading Time Taken Comments Blood Pressure 160/83 10/02/2024 9:31 AM EDT Pulse 60 10/02/2024 9:31 AM EDT Temperature 36.1 C (97 F) 10/02/2024 9:15 AM EDT Respiratory Rate 21 10/02/2024 9:31 AM EDT Oxygen Saturation 96% 10/02/2024 9:31 AM EDT Inhaled Oxygen Concentration - - Weight 140.2 kg (309 lb) 09/29/2024 12:21 PM EDT Height 177.8 cm (5' 10 ) 09/29/2024 12:21 PM EDT Body Mass Index 44.34 09/29/2024 12:21 PM EDT Plan of Treatment Health Maintenance Due Date Last Done Comments Adult Td,Tdap Booster 1960 DEPRESSION SCREENING 1974 HIV ONE-TIME SCREENING (18-65 YEARS) 01/25/1980 COLOGUARD 2007 FIT TEST 2007 FOBT 2007 SIGMOIDOSCOPY 2007 VIRTUAL COLONOSCOPY 2007 PNEUMOCOCCAL VACCINES (50+ years) (1 of 1 - PCV) 01/25/2012 RSV VACCINE (1 - Risk 50-74 years 1-dose series) 01/25/2012 CREATININE LEVEL 11/02/2023 11/01/2022, 03/2022, 04/15/2022, Additional history exists POTASSIUM LEVEL 11/02/2023 11/01/2022, 05/0 03/2022, 04/15/2022, Additional history exists INFLUENZA VACCINE (#1) 2024 , 01/01/2021, 01/01/2021, Additional history exists COVID-19 VACCINE ( season) 2024 03/28/2021, 05/05/2020, 04/02/2020 SCREENING FOR DIABETES 11/01/2025 11/01/2022, 2022 LIPID PANEL 02/28/2028 02/27/2023, 10/17, 11/01/2022, Additional history exists COLONOSCOPY 10/02/2029 10/02/2024 COLORECTAL CANCER SCREENING 10/02/2029 HEPATITIS C SCREENING Completed 02/19/2017 , 02/19/2017, 02/19/2017 ZOSTER VACCINES Completed 09/28/2022, 07/31/2022 SMOKING STATUS SCREENING (Once After 26 Yrs) Completed 10/02/2024 HEPATITIS A VACCINES Aged Out No long er eligible based on patient's age to complete this topic HIB VACCINES Aged Out No longer eligi ble based on patient's age to complete this topic MENINGOCOCCAL VACCINES (ACWY) Aged Out No longer eligible based on patient's age to complete this topic MENINGOCOCCAL VACCINES (B) Aged Out N o longer eligible based on patient's age to complete this topic Medical Devices Implanted Type Area [employer] Assistant Device Identifier Shelf Expiration Date Model / Serial / Lot Total Left Hip Replacement Procedures Procedure Name Priority Date/Time Associated Diagnosis Comments LFTS (HEPATIC PANEL) Routine 01/29/2025 10:56 AM EST Dermatophytosis of nail Pain in toe of right foot ENDOSCOPY, COLON 10/02/2024 8:30 AM EDT LIPID PANEL Routine 11/01/2022 8:57 AM EDT Impaired fasting glucose Pure hyperglyceridemia Encounter for screening for malignant neoplasm of prostate COMPREHENSIVE METABOLIC PANEL (CMP) Routine 11/01/2022 8:57 AM EDT Impaired fasting glucose Pure hyperglyceridemia Encounter for screening for malignant neoplasm of prostate HEPATITIS C ANTIBODY, QUALITATIVE Routine 02/19/2017 7:49 AM EST Routine general medical examination at a health care facility Impaired fasting glucose from Last 3 Months or Most Recently Relevant to Health Maintenance Results * (ABNORMAL) Hepatic Panel (LFTs) (01/29/2025 10:56 AM EST) AST 67(H) <40 U/L 01/29/2025 2:52 PM EST [facility] ALT 133(H) <50 U/L 01/29/2025 2:52 PM [facility] Alkaline Phosphatase 66 40 - 130 U/L 01/29/2025 2:52 PM [facility] Bilirubin, Total 0.5 0.0 - 1.2 mg/dL 01/29/2025 2:52 PM [facility] Bilirubin, Direct 0.1 0.0 - 0.3 mg/dL 01/29/2025 2:52 PM [facility] Total Protein 6.6 6.4 - 8.3 g/dL 01/29/2025 2:52 PM [facility] Albumin 4.0 3.5 - 5.2 g/dL 01/29/2025 2:52 PM [facility] Globulin 2.6 1.9 - 4.1 g/dL 01/29/2025 2:52 PM [facility] Blood (Blood) Venipuncture / Unknown 01/29/2025 10:56 AM EST 01/29/2025 11:21 AM EST us Sundeep Louise DPM LAB BLOOD BKR ORDERABLES Final Result [address] [address] * ENDOSCOPY, COLON (10/02/2024 8:30 AM EDT) Narrative Transcriptions Izabela Paredes MD - 10/02/2024 8:30 AM EDT [facility] Patient Name: Izabela Cantrell Attending MD:: IZABELA PAREDES MD, Procedure Date: 10/02/2024 8:30 AM Date of : 1960 Age: 64 Admit Type: Outpatient Gender: Male Room: [place] [address] Referring MD: DEMETRIA HAWKINS DO Exam Type: Colonoscopy Indications: Screening for colorectal malignant neoplasm, Last colonoscopy: April 2014 Medications: Propofol per Anesthesia Procedure: Informed consent was obtained from the patientafter discussion of the indications, limitations, alternatives, benefits, and risks of the procedure. Risks specifically discussed include but are not limited to medication reactions, missed lesions, bleeding, perforation, or the need for emergent surgery. Throughout the procedure, the patient's blood pressure, pulse, end-tidal CO2, and oxygensaturations were monitored continuously. The Colonoscope was introduced through the anus and advanced to the terminal ileum, with identificationof the appendiceal orifice and IC valve. The terminal ileum, ileocecal valve, appendiceal orifice, and rectum were photographed. The colonoscopy was performed without difficulty. The patient tolerated the procedure well. The quality of the bowel preparation was good. The bowel preparation usedwas GoLYTELY via split dose instruction. Complications: No immediate complications. Estimated blood loss:None. Findings: The perianal and digital rectal examinations were normal. Pertinent negatives include normal prostate (size, shape, and consistency). The retroflexed view of the distal rectum and anal verge was normal and showed no anal or rectal abnormalities. A small polyp was found in the transverse colon.The polyp was sessile. The polyp was removed with acold snare. Resection and retrieval were complete. The exam was otherwise without abnormality. The terminal ileum appeared normal. Retroflexion in the right colon was performed. Impression: - The distal rectum and anal verge are normal on retroflexion view. - One small polyp in the transverse colon, removed with a cold snare. Resected and retrieved. - The examination was otherwise normal. - The examined portion of the ileum was normal. Recommendation: - If the pathology report reveals adenomatous tissue, then repeat the colonoscopy for surveillance in 5 years. - If the pathology report reveals no adenomatous tissue, then repeatthe colonoscopy for screening purposes in 10 years. IZABELA PAREDES MD 10/02/2024 9:18:12 AM This report has been signed electronically. Number of Addenda: 0 Note Initiated On: 10/02/2024 8:30 AM Procedure Code(s): --- Professional --- 13197, Colonoscopy, flexible; with removal of tumor(s), polyp(s), or other lesion(s) by snare technique --- Technical --- 51462, Colonoscopy, flexible; with removal of tumor(s), polyp(s), or other lesion(s) by snare technique Diagnosis Code(s): --- Professional --- Z12.11, Encounter for screening for malignantneoplasm of colon D12.3, Benign neoplasm of transverse colon (hepatic flexure or splenic flexure) --- Technical --- Z12.11, Encounter for screening for malignantneoplasm of colon D12.3, Benign neoplasm of transverse colon (hepatic flexure or splenic flexure) CPT copyright 2021 [employer]. All rights reserved. The codes documented in this report are preliminary and upon enrobing machine corder reviewmay be revised to meet current compliance requirements. Procedure Date: 10/02/2024 8:30:[address] [place] [address] us Demetria A Bigda DO GI PROCEDURE ORDERABLES Final Re sult * (ABNORMAL) Comprehensive metabolic panel (11/01/2022 8:57 AM EDT) SODIUM 139 133 - 146 mmol/L [facility] POTASSIUM 4.2 3.3 - 5.1 mmol/L [facility] CHLORIDE 103 96 - 108 mmol/L [facility] CO2 28 21 - 35 mmol/L [facility] BUN 12 6 - 19 mg/dL [facility] CREATININE 1.10 0.5 - 1.5 mg/dL [facility] GLUCOSE 109(H) 70 - 99 mg/dL [facility] ALBUMIN 4.1 3.9 - 4.8 g/dL [facility] TOTAL PROTEIN 6.7 6.5 - 8.0 g/dL [facility] CALCIUM 8.9 8.4 - 10.3 mg/dL [facility] ALKALINE PHOSPHATASE 70 39 - 117 U/L [facility] TOTAL BILIRUBIN 0.6 0.0 - 1.2 mg/dL [facility] AST 30 0 - 37 U/L [facility] ALT 44(H) 0 - 40 U/L [facility] GLOBULIN 2.6 1 - 4.8 g/dL [facility] EGFR 77 >59 mL/min/1.7 3m2 [facility] Comment:Estimated glomerular filtration rate calculated using the CKD-EPI refit equation. ANION GAP 12 10 - 20 mmol/L [facility] Blood 11/01/2022 8:57 AM EDT 11/01/2022 9:00 AM EDT us Shannon OLIVER LAB BLOOD BKR ORDERABLES Fi nal Result Performing Organization Address City/State/[facility] Co de Phone Number [address] [address] * (ABNORMAL) Lipid panel (11/01/2022 8:57 AM EDT) HDL 37 mg/dL [facility] Comment: Interpretation <40 mg/dL: Low HDL cholesterol (major risk factor for CHD) Greater than or equal to 60 mg/dL: High HDL cholesterol ( negative risk factor for CHD) HDL - cholesterol is affected by a number of factors, e.g. smoking, excerise, hormones, sex and age. CHOLESTEROL 179 0 - 240 mg/dL [facility] TRIGLYCERIDES 165(H) 30 - 160 mg/dL [facility] LDL 109 50 - 129 mg/dL [facility] Comment: LDL levels in terms of risk for coronary heart disease: <100 mg/dL: Optimal 100-129 mg/dL: Near or above optimal 130-159 mg/dL: Borderline high 160-189 mg/dL: High >190 mg/dL: Very High CARDIAC RISK RATIO 4.8 3.4 - 5.0 C [facility] Blood 11/01/2022 8:57 AM EDT 11/01/2022 9:00 AM EDT us Shannon Zaldivar PA LAB BLOOD BKR ORDERABLES Fi nal Result [address] [address] * Hepatitis C antibody, qualitative (02/19/2017 7:49 AM EST) HCV Negative Negative [facility] Comment: This is a screening test and should be confirmed with molecular testing Blood 02/19/2017 7:49 AM EST 02/19/2017 8:15 AM EST us Demetria Hawkins DO LAB BLOOD BKR ORDERABLES Final R esult Performing Organization Address City/[facility]/ZIP Co de Phone Number [address] [address] from Last 3 Months or Most Recently Relevant to Health Maintenance Insurance [facility] [employer]ANCE Care Teams Warehouse Material Handler Relationship Specialty Start Date End Date Demetria Hawkins DO [email or web address] PCP - General 01/01/17 Demetria Hawkins DO Historical LMR Provider 01/01/17 Demetria Hawkins DO [address] [place] [id number] [email or web address] Insurance Assigned Provider 06/23/23 Additional Source Comments The information contained in this document represents components of the legal health record. It is not the complete legal health record.[facility]
--- OUTSIDE RECORDS SUMMARY | 2025-03-06 10:45 | XMS_ITS | Encounter Summary ---
Author Organization [facility] Address [address] [place] [address] [place] [address] Phone Care Team Providers Care Volunteer Coordinator Name Role Phone BigVincent frey DO Primary Care Provider [phone] Bigda, Vincent A DO Unavailable Bigda, Vincent Beatty DO Unavailable Encounter Details Date Type Department Care Team (Latest Contact Info) Description 12/28/2021 Transcribe Orders Virtual Department [address] [place] [address] Shannon Zaldivar PA [address] [facility] [place] [address] Pneumonia due to infectious organism, unspecified laterality, unspecified part of lung (Primary Dx) Social History Tobacco Use Types Packs/Day Years [...] documented as of this encounter Results * XR CHEST PA AND LATERAL 2 VIEWS (12/29/2021 8:51 AM EDT) Anatomical Region Laterality Modality Chest Computed Radiogr aphy 12/29/2021 5:11 PM EDT Impressions 12/29/2021 5:13 PM EDT Decreased conspicuity of right pulmonary opacities. No new or enlarging opacities. Narrative 12/29/2021 5:13 PM EDT XR CHEST PA AND LATERAL 2 VIEWS COMPARISON: XR CHEST PORTABLE FINDINGS: Devices/Tubes/Lines: None. Lungs: Previously seen right pulmonary opacities have decreased in conspicuity and extension, with persistent opacities in the right mid and upper lung martinez. No new pulmonary opacities. Again noted is elevation of the right hemidiaphragm. Pleura: Normal. No pleural effusion or pneumothorax. Heart/Mediastinum: Normal heart and mediastinum. Bones/Soft Tissues: Normal. No significant skeletal abnormality. Procedure Note Lucho Hernandez MD - 12/29/2021 XR CHEST PA AND LATERAL 2 VIEWS COMPARISON: XR CHEST PORTABLE FINDINGS: Devices/Tubes/Lines: None. Lungs: Previously seen right pulmonary opacities have decreased inconspicuity and extension, with persistent opacities in the right mid andupper lung martinez. No new pulmonary opacities. Again noted is elevation ofthe right hemidiaphragm. Pleura: Normal. No pleural effusion or pneumothorax. Heart/Mediastinum: Normal heart and mediastinum. Bones/Soft Tissues: Normal. No significant skeletal abnormality. IMPRESSION: Decreased conspicuity of right pulmonary opacities. No new or enlargingopacities. Shannon OLIVER IMG XR CHEST Final Resul t documented in this encounter Visit Diagnoses Diagnosis Pneumonia due to infectious organism, unspecified laterality, unspecified part of lung- Primary Pneumonia due to infectious organism, unspecified laterality, unspecified part of lung documented in this encounter Additional Health Concerns Infection Onset Date Last Indicated Resolved Time CoV-Risk 12/21/2021 12/21/2021 01/01/2022 1:22 AM EDT documented as of this encounter Care Teams Volunteer Coordinator Relationship Specialty Start Date End Date AndersonVincent freyDO [email or web address] PCP - General 01/01/17 AndersonVincent freyDO Historical LMR Provider 01/01/17 Cassandra Vincent BeattyDO [address] [place] [address] Insurance Assigned Provider 06/23/23 documented as of this encounter Additional Source Comments The information contained in this document represents components of the legal health record. It is not the complete legal health record.[facility]
--- OUTSIDE RECORDS SUMMARY | 2025-03-06 10:45 | XMS_ITS | Encounter Summary ---
Author Organization [facility] Address [address] [place] [address] Phone Care Team Providers Care Hardness Tester Name Role Phone Vincent Trujillo DO Primary Care Provider [phone] Vincent Trujillo DO Unavailable Vincent Trujillo DO Unavailable Encounter Details Date Type Department Care Team (Late st Contact Info) Description 12/21/2021 Procedure Pass [facility], Ct Scan - [address] [address] Social History Tobacco Use Types Packs/Day Years [...] documented as of this encounter Care Teams Hardness Tester Relationship Specialty Start Date End Date Vincent Trujillo DO PCP - General 01/01/17 Vincent Trujillo DO Historical LMR Provider 01/01/17 Vincent Trujillo DO [address] [place] [phone] Insurance Assigned Provider 06/23/23 documented as of this encounter Additional Source Comments The information contained in this document represents components of the legal health record. It is not the complete legal health record.[facility]
--- OUTSIDE RECORDS SUMMARY | 2025-03-06 10:45 | XMS_ITS | Encounter Summary ---
Author Organization [facility] Address [address] [place] [address] Phone Care Team Providers Care Cabinet Installer Name Role Phone Vincent Trujillo DO Primary Care Provider [phone] Vincent Trujillo DO Unavailable Vincent Trujillo DO Unavailable Encounter Details Date Type Department Care Team (Late st Contact Info) Description 07/14/2022 Procedure Pass [facility], Ct Scan - [address] [address] Social History Tobacco Use Types Packs/Day Years Used Date Smoking Tobacco: Never Smokeless Tobacco: Former Alcohol Use Standard Drinks/Week Comments Yes 0 (1 standard drink = 0.6 oz pur e alcohol) socially Education Answer Date Recorded Are you interested in more education? Not on keeley e 07/14/2022 Are you concerned about learning? Not on file 07/14/2022 No 07/14/2022 No 07/14/2022 Sex and Gender Information Value Date Recorded Sex Assigned at Male 08/13/2020 2:27 PM EDT Legal Sex Male 9:45 PM EDT Gender Identity Male 08/13/2020 2:27 PM EDT Sexual Orientation Not on file documented as of this encounter Plan of Treatment Not on file documented as of this encounter Visit Diagnoses Not on filedocumented in this encounter Care Teams Cabinet Installer Relationship Specialty Start Date End Date Vincent Trujillo DO [email or web address] PCP - General 01/01/17 Vincent Trujillo DO [email or web address] Historical LMR Provider 01/01/17 Vincent Trujillo DO [address] [place] [address] [email or web address] Insurance Assigned Provider 06/23/23 documented as of this encounter Additional Source Comments The information contained in this document represents components of the legal health record. It is not the complete legal health record.[facility]
--- OUTSIDE RECORDS SUMMARY | 2025-03-06 10:45 | XMS_ITS | Encounter Summary ---
Author Organization [facility] Address [address] [place] [address] Phone Care Team Providers Care Hearing Aid Fitter Name Role Phone Vincent Trujillo DO Primary Care Provider [phone] Vincent Trujillo DO Unavailable Sangeetha Dillon [employer] Unavailable Jared Hackett MD Unavailable [phone] Hien Keller NP Unavailable [phone] Vincent Trujillo DO Unavailable Encounter Details Date Type Department Care Team (Late st Contact Info) Description 11/09/2020 Procedure Pass [facility] [address] [place], [place] [id number] Social History Tobacco Use Types Packs/Day Years [...] documented as of this encounter Care Teams Hearing Aid Fitter Relationship Specialty Start Date End Date Vincent Trujillo PCP - General 01/01/17 CassandraVincentDO Historical LMR Provider 01/01/17 Sangeetha Dillon, ACTIV[employer] CONCIERGE [address] [place] [address] [email or web address] Historical LMR Provider 01/01/17 2 Jared Hackett MD [address] [place] [address] [email or web address] Historical LMR Provider 01/01/17 03/26/21 Hien Keller NP [address] [place] [address] Historical LMR Provider 01/01/17 2 Vincent Trujillo DO [address] [place] [address] Insurance Assigned Provider 06/23/23 documented as of this encounter Additional Source Comments The information contained in this document represents components of the legal health record. It is not the complete legal health record.[facility]
--- OUTSIDE RECORDS SUMMARY | 2025-03-06 10:45 | XMS_ITS | Encounter Summary ---
Author Organization [facility] Address [address] [place] [address] Phone Care Team Providers Care Local Sales Associate Name Role Phone Vincent Trujillo DO Primary Care Provider [phone] Vincent Trujillo DO Unavailable Sangeetha Dillon DISTRIBUTOR SALES MANAGER Unavailable Jared Hackett MD Unavailable [phone] Hien Keller NP Unavailable Vincent Trujillo DO Unavailable Encounter Details Date Type Department Care Team (Late st Contact Info) Description 02/19/2017 Transcribe Orders [address] [address] Vincent Trujillo DO [address] [facility] [place] [address] [place] [address] Routine general medical examination at a health care facility (Primary Dx); Impaired fasting glucose Social History Tobacco Use Types Packs/Day Years [...] documented as of this encounter Results * Hepatitis B core antibody, total (02/19/2017 7:49 AM EST) HEP B CORE AB, TOT Negative Negative [facility] Blood 02/19/2017 7:49 AM EST 02/19/2017 8:15 AM EST us Vincent A Bigda DO LAB BLOOD BKR ORDERABLES Final R esult Performing Organization Address City/[facility]/ZIP Co de Phone Number [address] [address] * PSA (screening) (02/19/2017 7:49 AM EST) PSA 0.47 0 - 4.00 ng/mL [facility] Blood 02/19/2017 7:49 AM EST 02/19/2017 8:15 AM EST us Vincent A Bigda DO LAB BLOOD BKR ORDERABLES Final R esult Performing Organization Address [facility]/ZIP Co de Phone Number [address] [address] * Hepatitis C antibody, qualitative (02/19/2017 7:49 AM EST) HCV Negative Negative [facility] Comment: This is a screening test and should be confirmed with molecular testing Blood 02/19/2017 7:49 AM EST 02/19/2017 8:15 AM EST us Vincent A Bigda DO LAB BLOOD BKR ORDERABLES Final R esult Performing Organization Address [facility] Co de Phone Number [address] [address] * Hepatitis B surface antigen (02/19/2017 7:49 AM EST) HBV SURFACE ANTIGEN Negative Negative [facility] Blood 02/19/2017 7:49 AM EST 02/19/2017 8:15 AM EST us Vincent A Bigda DO LAB BLOOD BKR ORDERABLES Final R esult Performing Organization Address City/[facility]/ZIP Co de Phone Number [address] [address] * Hemoglobin A1c (02/19/2017 7:49 AM EST) HEMOGLOBIN A1C 5.2 4.3 - 5.8 % [facility] Blood 02/19/2017 7:49 AM EST 02/19/2017 8:15 AM EST us Vincent A Bigda DO LAB BLOOD BKR ORDERABLES Final R [facility] Performing Organization Address [facility] de Phone Number [address] [address] * (ABNORMAL) Lipid panel (02/19/2017 7:49 AM EST) HDL 36 mg/dL [facility] Comment: Interpretation: Risk Level Males Decreased >45 mg/dL Average 40-45 mg/dL Increased <40 mg/dL CHOLESTEROL 175 0 - 240 mg/dL [facility] TRIGLYCERIDES 287(H) 30 - 160 mg/dL [facility] LDL 82 50 - 129 mg/dL [facility] Comment: LDL levels in terms of risk for coronary heart disease: <100 mg/dL: Optimal 100-129 mg/dL: Near or above optimal 130-159 mg/dL: Borderline high 160-189 mg/dL: High >190 mg/dL: Very High CARDIAC RISK RATIO 4.9 3.4 - 5.0 C [facility] Blood 02/19/2017 7:49 AM EST 02/19/2017 8:15 AM EST us Vincent A Bigda DO LAB BLOOD BKR ORDERABLES Final R esult Performing Organization Address [facility] Co de Phone Number [address] [address] documented in this encounter Visit Diagnoses Diagnosis Routine general medical examination at a health care facility- Primary Impaired fasting glucose documented in this encounter Additional Health Concerns Infection Onset Date Last Indicated Resolved Time CoV-Risk 12/21/2021 12/21/2021 01/01/2022 1:22 AM EDT documented as of this encounter Care Teams Local Sales Associate Relationship Specialty Start Date End Date Vincent Trujillo DO PCP - General 01/01/17 Vincent Trujillo DO Historical LMR Provider 01/01/17 Sangeetha Dillon NP [address] [place] [address] [email or web address] Historical LMR Provider 01/01/17 2 Jared Hackett MD [address] [place] [address] [email or web address] Historical LMR Provider 01/01/17 03/26/21 Hien Keller NP [address] [place] [address] Historical LMR Provider 01/01/17 2 Vincent Trujillo DO [address] [place] [address] Insurance Assigned Provider 06/23/23 documented as of this encounter Additional Source Comments The information contained in this document represents components of the legal health record. It is not the complete legal health record.[facility]
--- OUTSIDE RECORDS SUMMARY | 2025-03-06 10:46 | XMS_ITS | Encounter Summary ---
Author Organization [facility] Address [address] [place] [address] Phone Care Team Providers Care Kiln Placer Name Role Phone Vincent Trujillo DO Primary Care Provider [phone] Vincent Trujillo DO Unavailable Vincent Trujillo DO Unavailable Encounter Details Date Type Department Care Team (Late st Contact Info) Description 12/21/2021 Procedure Pass [facility], Ct Scan - [address] [address] Social History Tobacco Use Types Packs/Day Years [...] documented as of this encounter Care Teams Kiln Placer Relationship Specialty Start Date End Date Vincent Trujillo DO PCP - General 01/01/17 Vincent Trujillo DO Historical LMR Provider 01/01/17 Vincent Trujillo DO [address] [place] [address] Insurance Assigned Provider 06/23/23 documented as of this encounter Additional Source Comments The information contained in this document represents components of the legal health record. It is not the complete legal health record.[facility]
--- OUTSIDE RECORDS SUMMARY | 2025-03-06 10:46 | XMS_ITS | Encounter Summary ---
Author Organization [facility] Address [address] [place] [address] Phone Care Team Providers Care Sap Basis Name Role Phone Vincent Trujillo DO Primary Care Provider [phone] Vincent Trujillo DO Unavailable Sangeetha Dillon STEAM SHOVEL OPERATOR Unavailable Jared Hackett MD Unavailable [phone] Hien Keller NP Unavailable [phone] Vincent Trujillo DO Unavailable Encounter Details Date Type Department Care Team (Late st Contact Info) Description 08/13/2020 Procedure Pass [facility], Ct Scan - [address] [address] Social History Tobacco Use Types Packs/Day Years [...] documented as of this encounter Care Teams Sap Basis Relationship Specialty Start Date End Date Vincent Trujillo DO PCP - General 01/01/17 AndersonVincent freyDO Historical LMR Provider 01/01/17 Sangeetha Dillon, STEAM SHOVEL OPERATOR [address] [place] [address] [email or web address] Historical LMR Provider 01/01/17 2 Jared Hackett MD [address] [place] [address] [email or web address] Historical LMR Provider 01/01/17 03/26/21 Hien Keller NP [address] [place] [address] Historical LMR Provider 01/01/17 2 Vincent Trujillo DO [address] [place] [address] [email or web address] Insurance Assigned Provider 06/23/23 documented as of this encounter Additional Source Comments The information contained in this document represents components of the legal health record. It is not the complete legal health record.[facility]
--- OUTSIDE RECORDS SUMMARY | 2025-03-06 10:46 | XMS_ITS | Encounter Summary ---
Author Organization [facility] Address [address] [place] [address] Phone Care Team Providers Care Fur Tanner Name Role Phone Cassandra Vincent Beatty DO Primary Care Provider [phone] Cassandra, Vincent Rogerio DO Unavailable Cassandra Vincent Beatty DO Unavailable Encounter Details Date Type Department Care Team (Late st Contact Info) Description 05/21/2024 Procedure Pass [facility], [address] [address] Social History Tobacco Use Types Packs/Day Years [...] with a working camera? Not on file Sex and Gender Information Value Date Recorded Sex Assigned at Male 08/13/2020 2:27 PM EDT Legal Sex Male 9:45 PM EDT Gender Identity Male 08/13/2020 2:27 PM EDT Sexual Orientation Not on file documented as of this encounter Plan of Treatment Not on file documented as of this encounter Visit Diagnoses Not on filedocumented in this encounter Care Teams Fur Tanner Relationship Specialty Start Date End Date Vincent Trujillo DO PCP - General 01/01/17 Vincent Trujillo DO Historical LMR Provider 01/01/17 Vincent Trujillo DO [address] [place] [address] Insurance Assigned Provider 06/23/23 documented as of this encounter Additional Source Comments The information contained in this document represents components of the legal health record. It is not the complete legal health record.[facility]
--- OUTSIDE RECORDS SUMMARY | 2025-03-06 10:46 | XMS_ITS | Encounter Summary ---
Author Organization [facility] Address [address] [facility] [address] [place] [address] Phone Care Team Providers Care Administrative Coordinator Name Role Phone Vincent Trujillo DO Primary Care Provider [phone] Vincent Trujillo DO Unavailable Vincent Trujillo DO Unavailable Encounter Details Date Type Department Care Team (Late st Contact Info) Description 06/07/2024 Ancillary Orders [facility], X-Ray - [facility] [address] [place] [address] Vincent Trujillo, DO [address] [facility] [address] [place], [place] [id number] [email or web address] Lower extremity edema (Primary Dx); Abduction deformity of foot, right; Pain in joint of right hip Social History Tobacco Use Types Packs/Day Years [...] as of this encounter Results * XR HIP 2 VW RIGHT PLUS PELVIS (06/07/2024 8:24 AM EDT) Anatomical Region Laterality Modality Hip Right Computed Radiogr aphy 06/08/2024 1:15 AM EDT Impressions 06/08/2024 1:16 AM EDT Moderate to severe right hip osteoarthritis. Findings have progressed from 2021. Narrative 06/08/2024 1:16 AM EDT XR HIP 2 VW RIGHT PLUS PELVIS Referring clinician's provided indication for this examination in Epic: Pain REQUESTED INDICATION: Pain COMPARISON: XR HIPS 2+ VW EA BILAT PLUS PELVIS FINDINGS: PELVIS: Pelvic ring intact. No displaced fracture. Degenerative changes of the lower lumbar spine, sacroiliac joints, and pubic symphysis. RIGHT HIP: Moderate to severe hip joint space narrowing with bklo-xn-pbrz contact, subchondral sclerosis, and bony proliferative change. LEFT HIP: Partially visualized left total hip arthroplasty with screw fixated acetabular component. Procedure Note nAdrew Dutton MD - 06/08/2024 XR HIP 2 VW RIGHT PLUS PELVIS Referring clinician's provided indication for this examination in Epic:Pain REQUESTED INDICATION: Pain COMPARISON: XR HIPS 2+ VW EA BILAT PLUS PELVIS FINDINGS: PELVIS: Pelvic ring intact. No displaced fracture. Degenerative changes ofthe lower lumbar spine, sacroiliac joints, and pubic symphysis. RIGHT HIP: Moderate to severe hip joint space narrowing with asfr-yr-tftxsztzzfk, subchondral sclerosis, and bony proliferative change. LEFT HIP: Partially visualized left total hip arthroplasty with screwfixated acetabular component. IMPRESSION: Moderate to severe right hip osteoarthritis. Findings have progressed [email or web address]. us Vincent A Bigda DO IMG XR PELVIS Final Result * XR ANKLE 3 OR MORE VIEWS (RIGHT) (06/07/2024 8:22 AM EDT) Anatomical Region Laterality Modality Ankle Right Computed Radiogr aphy 06/08/2024 1:13 AM EDT Impressions 06/08/2024 1:15 AM EDT No acute fracture or dislocation of the ankle. Posttraumatic osteoarthritis. Narrative 06/08/2024 1:15 AM EDT XR ANKLE 3 OR MORE VIEWS (RIGHT) Referring clinician's provided indication for this examination in [facility]: Pain COMPARISON: XR FOOT 2 VIEWS (RIGHT) FINDINGS: Circumferential ankle soft tissue swelling. No acute fracture or dislocation. Ankle mortise symmetric. Significant osseous mineralization of the incisura raises possibility of prior syndesmotic injury with associated ossification. Moderate tibiotalar joint space narrowing with subchondral sclerosis and bony proliferative change. Procedure Note Andrew Dutton MD - 06/08/2024 XR ANKLE 3 OR MORE VIEWS (RIGHT) Referring clinician's provided indication for this examination in [facility]:Pain COMPARISON: XR FOOT 2 VIEWS (RIGHT) FINDINGS: Circumferential ankle soft tissue swelling. No acute fracture ordislocation. Ankle mortise symmetric. Significant osseous mineralizationof the incisura raises possibility of prior syndesmotic injury withassociated ossification. Moderate tibiotalar joint space narrowing withsubchondral sclerosis and bony proliferative change. IMPRESSION: No acute fracture or dislocation of the ankle. Posttraumatic osteoarthritis. us Vincent A Bigda DO IMG XR LOWER EXTREMITY Final Res ult documented in this encounter Visit Diagnoses Diagnosis Lower extremity edema- Primary Edema Abduction deformity of foot, right Pain in joint of right hip Lower extremity edema Edema Abduction deformity of foot, right Pain in joint of right hip Lower extremity edema Edema Abduction deformity of foot, right Pain in joint of right hip documented in this encounter Care Teams Administrative Coordinator Relationship Specialty Start Date End Date Vincent Trujillo DO PCP - General 01/01/17 Vincent Trujillo DO Historical LMR Provider 01/01/17 Vincent Trujillo DO [address] [place] [address] Insurance Assigned Provider 06/23/23 documented as of this encounter Additional Source Comments The information contained in this document represents components of the legal health record. It is not the complete legal health record.[facility]
--- OUTSIDE RECORDS SUMMARY | 2025-03-06 10:46 | XMS_ITS | Encounter Summary ---
Author Organization [facility] Address [address] [place] [address] Phone Care Team Providers Care Pollution Control Engineer Name Role Phone Vincent Trujillo DO Primary Care Provider Vincent Trujillo DO Unavailable Sangeetha Dillon FORK LIFT TRUCK OPERATOR Unavailable Jared Hackett MD Unavailable [phone] Hien Keller NP Unavailable Vincent Trujillo DO Unavailable Encounter Details Date Type Department Care Team (Late st Contact Info) Description 09/16/2018 Transcribe Orders Virtual Department [address] [place] [address] Vincent Trujillo DO [address] [facility] [address] [place] [address] Cough (Primary Dx) Social History Tobacco Use Types [...] XR CHEST PA AND LATERAL 2 VIEWS (09/17/2018 10:07 AM EDT) Anatomical Region Laterality Modality Chest Radiographic Tsering ging 09/17/2018 12:3 9 PM EDT Impressions 09/17/2018 12:40 PM EDT normal chest. POS - [id number] Narrative 09/17/2018 12:40 PM EDT EXAM: XR CHEST PA AND LATERAL 2 VIEWS COMPARISON: None FINDINGS: Heart and pulmonary vascularity are normal. No infiltrates or effusions are seen. Mediastinum has a normal appearance. Bony structures are intact. Procedure Note Donna Pink MD - 09/17/2018 EXAM: XR CHEST PA AND LATERAL 2 VIEWS COMPARISON: None FINDINGS: Heart and pulmonary vascularity are normal. No infiltrates or effusionsare seen. Mediastinum has a normal appearance. Bony structures areintact. IMPRESSION: normal chest. POS - [id number] Vincent Trujillo DO IMG XR CHEST Final Result documented in this encounter Visit Diagnoses Diagnosis Cough- Primary Cough documented in this encounter Additional Health Concerns Infection Onset Date Last Indicated Resolved Time CoV-Risk 12/21/2021 12/21/2021 01/01/2022 1:22 AM EDT documented as of this encounter Care Teams Pollution Control Engineer Relationship Specialty Start Date End Date Vincent Trujillo DO PCP - General 01/01/17 Vincent Trujillo DO Historical LMR Provider 01/01/17 Sangeetha Dillon NP [address] [place] [address] [email or web address] Historical LMR Provider 01/01/17 2 Jared Hackett MD [address] [place] [address] [email or web address] Historical LMR Provider 01/01/17 03/26/21 Hien Keller NP [address] [place] [address] Historical LMR Provider 01/01/17 2 Vincent Trujillo DO [address] [place] [address] [email or web address] Insurance Assigned Provider 06/23/23 documented as of this encounter Additional Source Comments The information contained in this document represents components of the legal health record. It is not the complete legal health record.[facility]
--- OUTSIDE RECORDS SUMMARY | 2025-03-06 10:46 | XMS_ITS | Encounter Summary ---
Author Organization [facility] Address [address] [place] [address] Phone Care Team Providers Care Fashion Merchandiser Name Role Phone Vincent Trujillo DO Primary Care Provider [phone] Vincent Trujillo DO Unavailable Sangeetha Dillon PAINT FORMULATOR Unavailable Jared Hackett MD Unavailable [phone] Hien Keller NP Unavailable Vincent Trujillo DO Unavailable Encounter Details Date Type Department Care Team (Late st Contact Info) Description 09/08/2020 Transcribe Orders Virtual Department [address] [place] [address] Vincent Trujillo DO [address] [facility] [address] [place] [address] Syncope and collapse (Primary Dx) Social History Tobacco Use Types [...] documented as of this encounter Results * Holter Monitor 24 Hours (09/17/2020 12:42 PM EDT) Total Beats 113,022 [facility] Ventricular Ectopy Total Beats 130 [facility] Ventricular Ectopy Single Beats 113 [facility] Ventricular Pair 1 [facility] Ventricular Runs 0 [facility] Supraventricular Total Beats 1,555 [facility] Supraventricular Ectopic Single Beats 1,259 [facility] Supraventricular Runs 66 [facility] Supraventricular Longest Run 13 [facility] Longest Supraventricular Run Rate 145 BPM [facility] Fastest Supraventricular Run Rate 186 BPM [facility] PHS CV HOLTER SUPRAVENTRICULAR FASTEST RUN 4 [facility] Mean Heart Rate 80 BPM [facility] Maximum Heart Rate 115 BPM P [facility] Minimum Heart Rate 54 BPM P [facility] Longest RR 2.082 S [facility] Anatomical Region Laterality Modality Heart Other 09/16/2020 9:04 AM EDT 09/17/2020 12:41 PM EDT Narrative 09/21/2020 4:10 PM EDT Holter monitor report Indication syncope Findings: The underlying rhythm is a sinus rhythm with average heart rate 80, minimum heart rate 54, maximal heart rate 115. There are somewhat frequent premature atrial contractions occurring 1% of total beats. Most of these are isolated. There were several runs of what looks like atrial tachycardia with some aberrancy. There were also rare isolated PVCs. The longest run was 13 beats at a rate of 145 bpm. Conclusion: Frequent isolated premature atrial contractions as well as some runs of what looks like atrial tachycardia with aberrancy. Holter Monitor Main Form Hookup date: 09/16/2020 Start time: 09:04 EDT Scan date: 09/17/2020 Analysis time: 24 hr The predominant rhythm is sinus rhythm. Mean HR: 80 bpm Max HR: at 11:10 EDT on 09/16/2020 115 bpm Min HR: at 05:53 EDT on 09/17/2020 54 bpm Ventricular ectopic beats - total: 130 Ventricular ectopic beats - singles: 113 Ventricular ectopic beats - pairs: 1 Ventricular ectopic beats - runs: 0 Supraventricular ectopic beats - total: 1555 Supraventricular ectopic beats - singles: 1259 Supraventricular ectopic beats - runs: 66 The longest supraventricular run was 13 beats at 145 bpm. The fastest supraventricular run was 4 beats at 186 bpm. Longest R-R interval at 05:48 EDT on .082 sec us Vincent Trujillo DO CV CARDIAC SERVICES ORDERABLES F inal Result documented in this encounter Visit Diagnoses Diagnosis Syncope and collapse- Primary Syncope and collapse documented in this encounter Additional Health Concerns Infection Onset Date Last Indicated Resolved Time CoV-Risk 12/21/2021 12/21/2021 01/01/2022 1:22 AM EDT documented as of this encounter Care Teams Fashion Merchandiser Relationship Specialty Start Date End Date Vincent Trujillo DO PCP - General 01/01/17 Vincent Trujillo DO Historical LMR Provider 01/01/17 Sangeetha Dillon NP [address] [place] [address] [email or web address] Historical LMR Provider 01/01/17 2 Jared Hackett MD [address] [place] [address] [email or web address] Historical LMR Provider 01/01/17 03/26/21 Hien Keller NP [address] [place] [address] Historical LMR Provider 01/01/17 2 Vincent Trujillo DO [address] [place] [address] [email or web address] Insurance Assigned Provider 06/23/23 documented as of this encounter Additional Source Comments The information contained in this document represents components of the legal health record. It is not the complete legal health record.[facility]
--- OUTSIDE RECORDS SUMMARY | 2025-03-06 10:46 | XMS_ITS | Encounter Summary ---
Author Organization [facility] Address [address] [place] [address] Phone Care Team Providers Care Sleeve Bottom Feller Name Role Phone Cassandra Vincent Rogerio Primary Care Provider [phone] Vincent Trujillo DO Unavailable CassandraVincent DO Unavailable Encounter Details Date Type Department Care Team (Late st Contact Info) Description 01/26/2022 Transcribe Orders Virtual Department [address] [place] [address] AndersonVincent frey Rogerio, DO [address] [facility] [place] [address] [place] [address] [email or web address] Bilateral hip pain (Primary Dx) Social History Tobacco Use Types [...] documented as of this encounter Visit Diagnoses Diagnosis Bilateral hip pain- Primary Pain in joint, pelvic region and thigh documented in this encounter Care Teams Sleeve Bottom Feller Relationship Specialty Start Date End Date Vincent Trujillo DO PCP - General 01/01/17 Vincent Trujillo DO Historical LMR Provider 01/01/17 AndersonVincent freyDO [address] [place] [address] Insurance Assigned Provider 06/23/23 documented as of this encounter Additional Source Comments The information contained in this document represents components of the legal health record. It is not the complete legal health record.[facility]
--- OUTSIDE RECORDS SUMMARY | 2025-03-06 10:46 | XMS_ITS | Encounter Summary ---
Author Organization [facility] Address [address] [place] [address] Phone Care Team Providers Care Printing Table Worker Name Role Phone Vincent Trujillo Rogerio Primary Care Provider [phone] Vincent Trujillo DO Unavailable Cassandra Vincent Beatty DO Unavailable Encounter Details Date Type Department Care Team (Late st Contact Info) Description 01/26/2022 Ancillary Orders Virtual Department [address] [place] [address] Cassandra Vincent Rogerio, DO [address] [facility] [address] [place] [address] [email or web address] Bilateral hip pain Social History Tobacco Use Types Packs/Day Years [...] as of this encounter Results * XR HIPS 2+ VW EA BILAT PLUS PELVIS (01/26/2022 3:21 PM EST) Anatomical Region Laterality Modality Hip, Pelvis Computed Radiogr aphy 01/27/2022 5:29 PM EST Impressions 01/27/2022 5:30 PM EST Degenerative changes. No acute osseous abnormality. Narrative 01/27/2022 5:30 PM EST XR HIPS 2+ VW EA BILAT PLUS PELVIS COMPARISON: CT ABDOMEN/PELVIS WITH CONTRAST FINDINGS: No displaced fracture. Osseous alignment is normal. Moderate right and severe left hip degenerative changes. Procedure Note Lucho Hernandez MD - 01/27/2022 XR HIPS 2+ VW EA BILAT PLUS PELVIS COMPARISON: CT ABDOMEN/PELVIS WITH CONTRAST FINDINGS: No displaced fracture. Osseous alignment is normal. Moderate right andsevere left hip degenerative changes. IMPRESSION: Degenerative changes. No acute osseous abnormality. Vincent Trujillo DO IMG XR PELVIS Final Result documented in this encounter Visit Diagnoses Diagnosis Bilateral hip pain Pain in joint, pelvic region and thigh Bilateral hip pain Pain in joint, pelvic region and thigh documented in this encounter Care Teams Printing Table Worker Relationship Specialty Start Date End Date Vincent Trujillo DO PCP - General 01/01/17 Vincent Trujillo DO Historical LMR Provider 01/01/17 Vincent Trujillo DO [address] [place] [address] Insurance Assigned Provider 06/23/23 documented as of this encounter Additional Source Comments The information contained in this document represents components of the legal health record. It is not the complete legal health record.[facility]
--- OUTSIDE RECORDS SUMMARY | 2025-03-06 10:46 | XMS_ITS | Encounter Summary ---
Author Organization [facility] Address [address] [place] [address] Phone Care Team Providers Care Climatology Teacher Name Role Phone Vincent Trujillo DO Primary Care Provider [phone] Vincent Trujillo DO Unavailable Sangeetha Dillon DRY ICE MACHINE OPERATOR Unavailable Jared Hackett MD Unavailable [phone] Hien Keller NP Unavailable Vincent Trujillo DO Unavailable Encounter Details Date Type Department Care Team (Late st Contact Info) Description 06/22/2020 Ancillary Orders [facility], X-Ray - [facility] [address] [place] [address] Vincent Trujillo DO [address] [facility] [place] [address] [place] [address] Effusion, right knee Social History Tobacco Use Types Packs/Day Years [...] as of this encounter Results * XR KNEE 4 OR MORE VIEWS (RIGHT) (06/22/2020 8:51 AM EDT) Anatomical Region Laterality Modality Knee Right Computed Radiogr aphy 06/22/2020 9:00 AM EDT Impressions 06/22/2020 9:02 AM EDT 1.Mild bilateral osteoarthritis. 2.Small right knee joint effusion and loose body. 3.Right knee quadriceps enthesopathy. Narrative 06/22/2020 9:02 AM EDT HISTORY: As above. COMPARISON: None. RIGHT KNEE RADIOGRAPH FINDINGS: 4 images obtained with weightbearing. No acute fracture or malalignment. Mild bilateral symmetric medial knee compartment joint space narrowing and small osteophytes. Small right suprapatellar osteophyte. No destructive or suspicious bone lesions. Small right knee joint effusion and 1.1 cm anterior joint space loose body. No soft tissue swelling. Procedure Note Merlin Barlow MD - 06/22/2020 HISTORY: As above. COMPARISON: None. RIGHT KNEE RADIOGRAPH FINDINGS: 4 images obtained with weightbearing. No acute fracture or malalignment. Mild bilateral symmetric medial kneecompartment joint space narrowing and small osteophytes. Small rightsuprapatellar osteophyte. No destructive or suspicious bone lesions. Smallright knee joint effusion and 1.1 cm anterior joint space loose body. Nosoft tissue swelling. IMPRESSION: 1.Mild bilateral osteoarthritis. 2.Small right knee joint effusion and loose body. 3.Right knee quadriceps enthesopathy. us Vincent A Bigda DO IMG XR LOWER EXTREMITY Final Res ult documented in this encounter Visit Diagnoses Diagnosis Effusion, right knee Effusion, right knee documented in this encounter Additional Health Concerns Infection Onset Date Last Indicated Resolved Time CoV-Risk 12/21/2021 12/21/2021 01/01/2022 1:22 AM EDT documented as of this encounter Care Teams Climatology Teacher Relationship Specialty Start Date End Date Cassandra Vincent BeattyDO PCP - General 01/01/17 Vincent Trujillo DO Historical LMR Provider 01/01/17 Sangeetha Dillon, DRY ICE MACHINE OPERATOR [address] [place] [address] [email or web address] Historical LMR Provider 01/01/17 2 Jared Hackett MD [address] [place] [address] [email or web address] Historical LMR Provider 01/01/17 03/26/21 Hien Keller NP [address] [place] [address] Historical LMR Provider 01/01/17 2 Vincent Trujillo DO [address] [place] [address] [email or web address] Insurance Assigned Provider 06/23/23 documented as of this encounter Additional Source Comments The information contained in this document represents components of the legal health record. It is not the complete legal health record.[facility]
--- OUTSIDE RECORDS SUMMARY | 2025-03-06 10:46 | XMS_ITS | Encounter Summary ---
Author Organization [facility] Address [address] [place] [address] Phone Care Team Providers Care Tar Leveler Name Role Phone Vincent Trujillo DO Primary Care Provider [phone] Vincent Truijllo DO Unavailable Vincent Trujillo DO Unavailable Reason for Referral * MRI/CAT Scan - Closed Specialty Diagnoses / Procedures Referred By Contledy t Referred To Contact Radiology Diagnoses Other nonspecific abnormal finding of lung field Procedures CT Chest CHG DIAGNOSTIC COMPUTED TOMOGRAPHY THORAX W/O CNTRST CHG DIAGNOSTIC COMPUTED TOMOGRAPHY THORAX W/CONTRAST CHG DIAGNOSTIC COMPUTED TOMOGRAPHY THORAX C-/C+ Vincent Trujillo DO Phone: tel: fax: [email or web address] [facility] [address] [place] [address] Phone: tel: Referral ID Status Reason Start Date Expiration Date Visits Re quested Visits Authorized [id number] Closed 08/01/2022 08/31/2022 1 1 Encounter Details Date Type Department Care Team (Late st Contact Info) Description 07/14/2022 Transcribe Orders [facility] Department [address] [place] [address] Vincent Trujillo DO [address] [facility] [place] [address] [place] [address] Other nonspecific abnormal finding of lung field (Primary Dx) Social History Tobacco Use Types [...] documented as of this encounter Results * CT CHEST WITHOUT CONTRAST (08/01/2022 6:17 PM EDT) Anatomical Region Laterality Modality Chest Computed Tomogra phy 08/04/2022 2:57 PM EDT Impressions 08/04/2022 3:07 PM EDT 1. Interval resolution of previously demonstrated right upper lobe airspace opacity. 2. Similar scattered 2 to 3 mm pulmonary nodules. As per Fleischner Society 2017 guidelines, no specific imaging followup is recommended in the absence of systemic malignancy, significant smoking history or risk factors for lung cancer. If the patient is considered high risk for lung malignancy, follow-up CT chest in 12 months may be considered. Narrative 08/04/2022 3:[address] CHEST WITHOUT CONTRAST TECHNIQUE: Multidetector CT of the chest was performed without intravenous contrast using tailored dose modulation. COMPARISON: CT chest 12/21/2021 FINDINGS: Devices/Tubes/Lines: None. Lungs: The previously demonstrated right upper lobe airspace opacity is intervally resolved. There is redemonstration of a 3 mm left lower lobe subpleural nodule and a 2 mm right lower lobe nodule (4:174 and 220). No new pulmonary nodules demonstrated. No focal consolidation. The central airways are clear. Pleura: No pleural effusion or pneumothorax. Mediastinum: No thyroid nodules. Heart is similar in size. There is no pericardial effusion. Lymph Nodes: No enlarged supraclavicular, axillary, mediastinal, or hilar lymph nodes. Upper Abdomen: No abnormality detected in the visualized upper abdomen. Absence of intravenous contrast limits sensitivity for detecting solid organ findings. Chest Wall: Minimal right-sided retroareolar soft tissue suggestive of gynecomastia. No chest wall mass. Bones: Similar 3.0 cm fat density lesion within the subcutaneous soft tissues at the left upper chest suggestive of a lipoma (3:22). Mild multilevel degenerative changes of the spine. No destructive osseous lesions. Procedure Note Kerline Kapoor MD - 08/04/2022 CT CHEST WITHOUT CONTRAST TECHNIQUE: Multidetector CT of the chest was performed without intravenouscontrast using tailored dose modulation. COMPARISON: CT chest 12/21/2021 FINDINGS: Devices/Tubes/Lines: None. Lungs: The previously demonstrated right upper lobe airspace opacity isintervally resolved. There is redemonstration of a 3 mm left lower lobesubpleural nodule and a 2 mm right lower lobe nodule (4:174 and 220). Nonew pulmonary nodules demonstrated. No focal consolidation. The centralairways are clear. Pleura: No pleural effusion or pneumothorax. Mediastinum: No thyroid nodules. Heart is similar in size. There is nopericardial effusion. Lymph Nodes: No enlarged supraclavicular, axillary, mediastinal, or hilarlymph nodes. Upper Abdomen: No abnormality detected in the visualized upper abdomen.Absence of intravenous contrast limits sensitivity for detecting solidorgan findings. Chest Wall: Minimal right-sided retroareolar soft tissue suggestive ofgynecomastia. No chest wall mass. Bones: Similar 3.0 cm fat density lesion within the subcutaneous softtissues at the left upper chest suggestive of a lipoma (3:22). Mildmultilevel degenerative changes of the spine. No destructive osseouslesions. IMPRESSION: 1. Interval resolution of previously demonstrated right upper lobeairspace opacity. 2. Similar scattered 2 to 3 mm pulmonary nodules. As per FleischnerSociety 2017 guidelines, no specific imaging followup is recommended inthe absence of systemic malignancy, significant smoking history or riskfactors for lung cancer. If the patient is considered high risk for lungmalignancy, follow-up CT chest in 12 months may be considered. us Vincent Beatty Cassandra EASTMAN IMG CT CHEST Final Result documented in this encounter Visit Diagnoses Diagnosis Other nonspecific abnormal finding of lung field- Primary Other nonspecific abnormal finding of lung field documented in this encounter Care Teams Tar Leveler Relationship Specialty Start Date End Date Vincent Trujillo DO PCP - General 01/01/17 Vincent Trujillo DO Historical LMR Provider 01/01/17 Vincent Trujillo DO [address] [place] [phone] Insurance Assigned Provider 06/23/23 documented as of this encounter Additional Source Comments The information contained in this document represents components of the legal health record. It is not the complete legal health record.[facility]
--- OUTSIDE RECORDS SUMMARY | 2025-03-06 10:46 | XMS_ITS | Encounter Summary ---
Author Organization [facility] Address [address] [place] [address] Phone Care Team Providers Care Telephonic Rn Name Role Phone AndersonVincent frey DO Primary Care Provider [phone] Vincent Trujillo Rogerio DO Unavailable Cassandra Vincent Beatty DO Unavailable Encounter Details Date Type Department Care Team (Late st Contact Info) Description 10/02/2024 Procedure Pass [facility] Endoscopy Admitting Dept Virtual Department [address] [place], [place] [id number] Social History Tobacco Use Types Packs/Day Years [...] on filedocumented in this encounter Care Teams Telephonic Rn Relationship Specialty Start Date End Date Vincent Trujillo DO PCP - General 01/01/17 Vincent Trujillo DO Historical LMR Provider 01/01/17 Vincent Trujillo DO [address] [place] [address] Insurance Assigned Provider 06/23/23 documented as of this encounter Additional Source Comments The information contained in this document represents components of the legal health record. It is not the complete legal health record.[facility]
--- OUTSIDE RECORDS SUMMARY | 2025-03-06 10:46 | XMS_ITS | Encounter Summary ---
Author Organization [facility] Address [address] [facility] [address] [place] [address] Phone Care Team Providers Care Projection Printer Name Role Phone Vincent Trujillo DO Primary Care Provider [phone] Vincent Trujillo DO Unavailable Vincent Trujillo DO Unavailable Encounter Details Date Type Department Care Team (Late st Contact Info) Description 06/07/2024 Ancillary Orders [facility], X-Ray - [facility] [address] [place] [address] Vincent Trujillo, DO [address] [facility] [address] [place], [place] [id number] [email or web address] Lower extremity edema (Primary Dx); Abduction deformity [...] XR KNEE 4 OR MORE VIEWS (RIGHT) (06/07/2024 8:21 AM EDT) Anatomical Region Laterality Modality Knee Right Computed Radiogr aphy 06/07/2024 10:0 7 PM EDT Impressions 06/08/2024 12:04 AM EDT Tricompartmental knee osteoarthritis, 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 Findings have progressed from 2020. Narrative 06/08/2024 12:04 AM EDT XR KNEE 4 OR MORE VIEWS (RIGHT) Referring clinician's provided indication for this examination in [facility]: Pain COMPARISON: XR KNEE 4 OR MORE VIEWS (RIGHT) FINDINGS: Right Knee: No acute fracture or dislocation. Osseous alignment within normal limits. Knee joint space narrowing with subchondral sclerosis, cystic change, and marginal osteophytes is moderate in the medial, moderate in the patellofemoral, and mild in the lateral compartment. Quadriceps enthesopathy is at the superior patellar pole. No joint effusion. No acute fracture or dislocation. Procedure Note Andrew Dutton MD - 06/08/2024 XR KNEE 4 OR MORE VIEWS (RIGHT) Referring clinician's provided indication for this examination in [facility]:Pain COMPARISON: XR KNEE 4 OR MORE VIEWS (RIGHT) FINDINGS: Right Knee: No acute fracture or dislocation. Osseous alignment withinnormal limits. Knee joint space narrowing with subchondral sclerosis,cystic change, and marginal osteophytes is moderate in the medial,moderate in the patellofemoral, and mild in the lateral compartment.Quadriceps enthesopathy is at the superior patellar pole. No jointeffusion. No acute fracture or dislocation. IMPRESSION: Tricompartmental knee osteoarthritis, moderate in the medial andpatellofemoral compartments. Findings have progressed from 2020. us Vincent Beatty Cassandra EASTMAN IMG XR LOWER EXTREMITY Final Res ult documented in this encounter Visit Diagnoses Diagnosis Lower extremity edema- Primary Edema Abduction deformity of foot, right Pain in joint of right hip Lower extremity edema Edema Abduction deformity of foot, right Pain in joint of right hip documented in this encounter Care Teams Projection Printer Relationship Specialty Start Date End Date Vincnet Trujillo DO PCP - General 01/01/17 Vincent Trujillo DO Historical LMR Provider 01/01/17 Vincent Trujillo DO [address] [place] [address] Insurance Assigned Provider 06/23/23 documented as of this encounter Additional Source Comments The information contained in this document represents components of the legal health record. It is not the complete legal health record.[facility]
--- OUTSIDE RECORDS SUMMARY | 2025-03-06 10:46 | XMS_ITS | Encounter Summary ---
Author Organization [facility] Address [address] [place] [address] Phone Care Team Providers Care Adjunct Faculty For Medical Terminology Name Role Phone Vincent Trujillo DO Primary Care Provider [phone] Vincent Trujillo DO Unavailable Sangeetha Dillon FRETTED STRING INSTRUMENT REPAIRER Unavailable Jared Hackett MD Unavailable [phone] Hien Keller NP Unavailable Vincent Trujillo DO Unavailable Encounter Details Date Type Department Care Team (Late st Contact Info) Description 09/04/2020 Transcribe Orders Virtual Department [address] [place] [address] Vincent Trujillo DO [address] [facility] [place] [address] [place] [address] [email or web address] Social History Tobacco Use Types Packs/Day Years [...] documented as of this encounter Care Teams Adjunct Faculty For Medical Terminology Relationship Specialty Start Date End Date Vincent Trujillo DO PCP - General 01/01/17 Vincent Trujillo DO Historical LMR Provider 01/01/17 Sangeetha Dillon NP [address] [place] [address] [email or web address] Historical LMR Provider 01/01/17 2 Jared Hackett MD [address] [place] [address] [email or web address] Historical LMR Provider 01/01/17 03/26/21 Hien Keller NP [address] [place] [address] Historical LMR Provider 01/01/17 2 Vincent Trujillo DO [address] [place] [address] [email or web address] Insurance Assigned Provider 06/23/23 documented as of this encounter Additional Source Comments The information contained in this document represents components of the legal health record. It is not the complete legal health record.[facility]
[2025-03-06 15:24] LABS: MANUAL DIFF FLAG NO
[2025-03-06 15:26] LABS: Hematocrit 44.6 % (42.0-52.0); Hemoglobin 15.2 g/dl (14.0-18.0); Imm Gran Abs Auto 0.02 X10*3/uL (0.00-0.03); Imm Gran Pct Auto 0.4 % (0.0-0.4); Lymphocytes Absolute Auto 1.2 X10*3/uL (1.2-4.9); Mean Corpuscular HGB Conc 34.1 g/dl (31.0-36.0); Mean Corpuscular Hemoglobin 28.0 pg (27.0-33.0); Mean Corpuscular Volume 82.1 fL (80.0-98.0); NRBC Abs Auto 0.000 X10*3/uL (0.0-0.012); NRBC Pct Auto 0.0 /100WBC (0.0-0.2); Platelet Count 220 X10*3/uL (160-400); Red Blood Count 5.43 X10*6/uL (4.60-5.80); White Blood Count 5.3 X10*3/uL (4.8-10.8)
[2025-03-06 16:01] LABS: Alanine Aminotransferase 117 U/L (0-40); Albumin Level 4.2 g/dL (3.5-5.0); Alkaline Phosphatase 58 U/L (39-117); Anion Gap 12 (12-20); Aspartate Amino Transferase 76 U/L (5-37); Blood Urea Nitrogen 10 mg/dL (9-16); Calcium 9.0 mg/dL (8.4-10.2); Carbon Dioxide 28 mmol/L (22-29); Chloride 105 mmol/L (96-108); Cholesterol 175 mg/dL (<200); Estimated Glomerular Filt Rate > 60; HDL Cholesterol 34 mg/dL (>40); Potassium 4.5 mmol/L (3.3-5.1); Sodium 140 mmol/L (135-145); Total Protein 6.8 g/dL (6.5-8.0); Triglycerides 111 mg/dL (<150)
[2025-03-06 16:06] LABS: Prostate Specific Antigen 0.34 ng/mL (<0.05-4.0)
== END 2025-03-06 09:49 | disposition home or self-care (01) ==
LOC: HO.MANLDS 09:48
PROVIDERS: Visit Provider Internal Medicine
DX: I10 Essential (primary) hypertension (principal); E78.1 Pure hyperglyceridemia; R73.01 Impaired fasting glucose; Z12.5 Encounter for screening for malignant neoplasm of prostate
CPT/HCPCS: 36415; 80053; 80061; 83036; 84153; 85025